=== PATIENT | male | born 1980 | race Two or more races ===

== ENCOUNTER 2016-09-21 20:16 | Emergency (ER) | payer MEDICAID ==
[2016-10-16 09:40] VITALS: BMI 25.1
== END 2016-09-22 00:30 | disposition home or self-care (01) ==
LOC: D.ER 20:16 → EDBD 20:16 → D.ER 09-22 00:30
DX: B34.9 Viral infection, unspecified (principal); R19.7 Diarrhea, unspecified; J45.909 Unspecified asthma, uncomplicated

== ENCOUNTER 2016-10-15 10:35 | Inpatient (IN) | payer MEDICAID ==
[~2016-10-15] VITALS: Ht 180.3 cm; Wt 65.1 kg
--- NOTE | ~2016-10-15 | EC ---
PATIENT:ABDIEL SOSA DATE OF SERVICE: 10/15/16 SEX: M MEDICAL RECORD: [id number] DATE OF : [birth year] LOCATION:D. D.211 AGE OF PATIENT: 36 ADMISSION DATE: 10/15/16 REFERRING PHYSICIAN: INTERPRETING PHYSICIAN: YONATHAN FELIX M.D. ECHOCARDIOGRAM REPORT ECHO CHARGES 5 ECHO LIMITED CLINICAL DIAGNOSIS: ASSESS FOR ANNULAR ABSCESS ON AORTIC VAVLE DUE TO AORTIC ENDOCARDITIS ECHOCARDIOGRAPHIC MEASUREMENTS (adult normal given) AC root (d.<3.7cm) 4.6 LV Septum d (<1.2 cm> 1.6 Valve Excursion 2.8 LV Septum (systole) 2.3 Left Atria (s.<4.0cm> 4.8 LVPW d(<1.2cm) 1.9 RV (d.<2.3cm) 5.8 LVPW (sytole) 2.2 LV diastole(<5.6CM) 6.4 MV E-F(>70mm/sec) LV systole 4.2 LVOT Diameter 1.9 MV exc.(>10mm) 1.5 Est.ejection fraction (50-75%) Pericardial Effusion N DOPPLER: LVIT A 104 E 139 LA RVSP 74 LVOT 159 AOP1/2T Asc. Ao 337 RVOT 99 RA PA 119 AV Gradient Peak 45.39 AV Mean 28.45 AV Area 1.4 MV Gradient Peak 12.65 MV Mean 4.90 MV Area COMMENTS: Repairer Welding Systems And Equipment: Meghana DIOR Lute Packer Or Applier:2 Dr. Felix TAPE# PACS DATE OF SERVICE: 10/30/2016 REFERRING PHYSICIAN: Kingsley An MD. INDICATION: Endocarditis. DESCRIPTION: Left ventricle demonstrates left ventricular hypertrophy. No regional wall motion abnormalities are seen. Estimated ejection fraction is 55%. Mitral valve is structurally normal. There is no regurgitation or ECHOCARDIOGRAM REPORT [id number] ABDIEL SOSA prolapse seen. Left atrium is normal in size. The aortic valve leaflets are thickened. There appears to be a vegetation, possibly on the noncoronary cusp. Does appear smaller in density and diameter than the previous study. There was jxtg-vx-avwxrhbo insufficiency noted. I do not see any evidence of a ring abscess. Right ventricle is moderately dilated. Tricuspid valve is structurally normal. There is no regurgitation noted. Right atrium is normal in size. No pericardial effusion is seen. IMPRESSION: 1. Left ventricular hypertrophy with preserved ejection fraction of 55%. 2. Krnx-ul-kabpjfqc aortic insufficiency. 3. There is still vegetation possibly on the noncoronary cusp. This appears smaller in diameter than previous study. There is no evidence of ring abscess. TRANSINT:[id number] Voice Confirmation ID: [id number] DOCUMENT ID: [id number] YONATHAN FELIX M.D. CC: [id number] DICTATION DATE: 10/30/16 1433 RELATIONS MANAGER: 10/30/16 1555 ADM IN [facility] [address] [id number]
--- NOTE | ~2016-10-15 | HEMODYNAMI ---
PATIENT:ABDIEL SOSA MEDICAL RECORD: [id number] : [birth year] LOCATION: D.2227 ADMISSION DATE: 10/15/16 Generatedon:10/20/201614:20 Patient name: ABDIEL SOSA Patient #: [id number] : 1980 Date of study: 10/20/2016 Page: Of Hemodynamic Procedure Report Patient Data Patient Demographics Procedure consent was obtained First Name: ABDIEL Gender: Male Last Name: SHEILA : 1980 Middle Initial: SHILOH Age: 36 year(s) Patient #: [id number] Race: Other SSN: [id number] Additional ID: [id number] Contact details [address]: [address] [place] [address] State: [place] City: [place] Zip code: [address] Admission Admission Data Admission Date: 10/15/2016 Admission Time: 14:01 Arrival Date: 10/20/2016 Arrival Time: 0:00 Admit Source: Other Room #: D.2227 Height (in.): 71 BSA: 1.88 (m2) Height (cm.): 180.34 BMI: 21.4 (kg/m2) Weight (lbs.): 153.44 Weight (kg.): 69.6 Lab Results Lab Result Date: 10/20/2016 Lab Result Time: 0:00 Biochemistry Name Units Result Min Max BUN mg/dl 9 --(*---)-- 7 18 Creatinine mg/dl 0.7 --(*---)-- 0.6 1.3 CBC Name Units Result Min Max Hemoglobin g/dl 9.4 *-(----)-- 13.5 17.5 Procedure Procedure Types Cath Procedure Diagnostic Procedure LHC Coronaries only MOUSTAPHA Miscellaneous Procedures Moderate Sedation up to 15 minutes Procedure Description Procedure Date Procedure Date: 10/20/2016 Procedure Start Time: 14:08 Procedure End Time: 14:15 Procedure Staff Name Function Ld Hazel MD Performing Physician Aida Montano RT Scrub Sujit Cuellar RN Nurse Asuncion Hancock RT Monitor Procedure Data Cath Procedure Fluoroscopy Diagnostic fluoroscopy Total fluoroscopy Time: 0.9 time: 0.9 min min Diagnostic fluoroscopy Total fluoroscopy dose: 313 dose: 313 mGy mGy Contrast Material Contrast Material Type Amount (ml) Isovue 300 43 Entry Location Entry Primary Successful Side Size Upsize Upsize Entry Closure Succes sful Closure Location (Fr) 1 (Fr) 2 (Fr) Remarks Device Remarks Femoral Right 5 Fr Exoseal artery Estimated blood loss: 10 ml Diagnostic catheters Device Type Used For End Catheter Placement Medtronic Dexterity 5Fr Procedure JL 4.0 catheter (NO CHARGE) Medtronic Dexterity 5Fr Procedure 3DRC catheter (NO CHARGE) Procedure Complications No complications Procedure Medications Medication Administration Route Dosage Oxygen NC 2 l/min Refer to Anesthesia Notes for Sedation Medications Hurricaine Elizabeth P.O. 1 Sprays Versed I.V. 1 mg Fentanyl I.V. 50 mcg Versed I.V. 1 mg Fentanyl I.V. 50 mcg Versed I.V. 1 mg Fentanyl I.V. 50 mcg Hemodynamics Rest BSA: 1.88 (m2) HGB: 9.4 (g/dl) O2 Consumption: Estimated: 248.22 (ml/min) O2 Con sumption indexed: Estimated:132.03 (ml/min/m) Heart Rate: 93 (bpm) Snapshots Pre Cath Intra NCS Post Cath Vital Signs Time Heart Resp SPO2 NIBP Rhythm Pain Sedation Rate (ipm) (%) (mmHg) Status Level (bpm) 13:14:56 96 19 96 95/50(68) NSR 0 (11) 10(A) , No pain 13:19:06 95 21 97 92/46(69) NSR 0 (11) 10(A) , No pain 13:23:14 89 30 97 86/50(69) NSR 0 (11) 10(A) , No pain 13:27:16 97 26 100 106/62(80) NSR 0 (11) 10(A) , No pain 13:31:24 96 16 98 99/55(73) NSR 0 (11) 10(A) , No pain 13:35:34 92 29 98 108/59(78) NSR 0 (11) 8(A) , No pain 13:39:48 88 89 97 96/50(71) NSR 0 (11) 8(A) , No pain 13:44:00 87 89 96 83/44(64) NSR 0 (11) 9(A) , No pain 13:48:03 84 21 98 78/57(67) NSR 0 (11) 9(A) , No pain 13:52:05 85 33 96 96/54(77) NSR 0 (11) 9(A) , No pain 13:56:15 85 25 96 92/49(65) NSR 0 (11) 10(A) , No pain 14:00:23 84 22 96 90/49(68) NSR 0 (11) 10(A) , No pain 14:04:30 84 16 96 90/50(63) NSR 0 (11) 9(A) , No pain 14:08:36 84 22 97 90/52(65) NSR 0 (11) 9(A) , No pain 14:12:42 86 20 97 94/52(70) NSR 0 (11) 10(A) , No pain Medications Time Medication Route Dose Verified Delivered Reason Notes Effective ness by by 13:32:28 Oxygen NC 2 Ld Buffie used for l/min St. Oskar Cuellar RN procedure 13:32:34 Refer to Ld Beckett Anesthesia St. Oskar Cuellar RN Notes for MD Sedation Medications 13:32:44 Hurricaine P.O. 1 Ld Buffie Per Elizabeth Sprays St. Oskar Cuellar RN physician 14:00:25 Versed I.V. 1 mg Ld Buffie for [facility]. Oskar Cuellar RN sedation 14:00:33 Fentanyl I.V. 50 mcg Ld Buffie for St. Oskar Cuellar RN sedation 14:04:45 Versed I.V. 1 mg Ld Buffie for [facility]. Oskar Cuellar RN sedation 14:04:49 Fentanyl I.V. 50 mcg Ld Buffie for St. Oskar Cuellar RN sedation 14:10:52 Versed I.V. 1 mg Ld Buffie for [facility]. Oskar Cuellar RN sedation 14:10:56 Fentanyl I.V. 50 mcg Ld Buffie for St. Oskar Cuellar RN sedation Procedure Log Time Note 12:45:50 Aida Montano RT(R) sent for patient. Start room use. 12:54:08 Patient Height : 180.34 cm 12:54:25 Patient Weight : 69.6 kg 12:54:33 Arrival Date: 10/20/2016 12:00:00 AM 12:54:42 Admit Source: Other 12:55:48 Lab Result : BUN 9 mg/dl 12:55:48 Lab Result : Hemoglobin 9.4 g/dl 12:55:48 Lab Result : Creatinine 0.7 mg/dl 12:55:59 Diagnostic Cath Status : Elective 13:08:30 Informed consent obtained and on chart 13:09:00 Time tracking: Regular hours 13:09:04 Plan of Care:Hemodynamics will remain stable., Cardiac rhythm will remain stable., Comfort level will be maintained., Respiratory function will remain adequate., Patient/ family verbilizes understanding of procedure., Procedure tolerated without complication., Recovers from procedure without complications.. 13:09:39 Patient received from Med II to CCL 2 Alert and oriented. Tansferred to table in Supine position. 13:09:40 Warm blankets applied, and vicente hugger turned on for patient comfort. 13:09:40 Correct patient and procedure confirmed by team. 13:09:41 ECG and BP/O2 sat monitors applied to patient. 13:09:43 Vital chart was started 13:09:45 Baseline sample Acquired. 13:09:55 Rhythm: sinus rhythm 13:09:57 Full Disclosure recording started 13:10:14 H&P Date Dictated: 10/20/2016 Within 30 days and on chart., H&P Addendum completed by physician on day of procedure. (MUST COMPLETE FOR ALL OUTPATIENTS). 13:10:19 Pre-procedure instructions explained to patient. 13:10:20 Pre-op teaching completed and patient verbalized understanding. 13:10:24 Family in waiting room. 13:10:26 Patient NPO since Midnight. 13:10:56 Is the patient allergic to Iodine/contrast media? No. 13:10:58 Was the patient premedicated? No 13:13:10 Airway obstruction? Yes Asthma 13:14:11 Snore? No 13:14:13 Sleep apnea? No 13:16:10 Patient pain scale 0/10 ?. 13:16:41 IV patent on arrival in right antecubital with 0.9% NaCl at O. 13:17:05 Lab results completed and on chart. 13:17:13 Physician paged 13:17:26 Procedure type changed to Cath procedure, Diagnostic procedure, LHC, Coronaries only, MOUSTAPHA, Miscellaneous Procedures, Moderate Sedation up to 15 minutes 13:25:16 Jocelyn Glue Spreading Machine Operator present for MOUSTAPHA. 13:31:01 Lilibeth present and monitoring patient for TIVA. 13:31:10 Procedure started. 13:31:46 Physician arrived 13:32:28 Oxygen 2 l/min NC was administered by Sujit Cuellar RN; used for procedure; 13:32:34 Refer to Anesthesia Notes for Sedation Medications was administered by Sujit Cuellar RN; ; 13:32:44 Hurricaine Elizabeth 1 Sprays P.O. was administered by Sujit Cuellar RN; Per physician; ::46 --------ALL STOP TIME OUT------ 13:32:47 Final Timeout: patient, procedure, and site verified with staff and physician. All members of the team are in agreement. 13:32:56 Sedation plan: TIVA Propofol 13:34:36 MOUSTAPHA started. 13:42:13 MOUSTAPHA completed. 14:00:25 Versed 1 mg I.V. was administered by Sujit Cuellar RN; for sedation; 14:00:33 Fentanyl 50 mcg I.V. was administered by Sujit Cuellar RN; for sedation; 14:02:06 Right groin area was prepped with chlora-prep and draped in sterile fashion 14:02:08 Alarms reviewed by R. N. 14:02:09 Alarms reviewed by R. N. 14:04:45 Versed 1 mg I.V. was administered by Sujit Cuellar RN; for sedation; 14:04:49 Fentanyl 50 mcg I.V. was administered by Sujit Cuellar RN; for sedation; 14:07:16 Use device set Femoral Dx 14:07:59 Acist Syringe opened to sterile field. 14:08:01 Bag Decanter opened to sterile field. 14:08:04 Medline Cath Pack opened to sterile field. 14:08:05 Terumo 5Fr Sikeston Sheath opened to sterile field. 14:08:07 St Allen 260cm J .035 wire opened to sterile field. 14:08:10 Acist Hand Control opened to sterile field. 14:08:10 Acist Manifold opened to sterile field. 14:08:13 Tegaderm 4 x 4 opened to sterile field. 14:08:27 Local anesthetic to right femoral artery with Lidocaine 2% by Ld Hazel MD.INITIAL ACCESS ONLY 14:08:35 A 5 Fr sheath was inserted into the Right Femoral artery 14:08:53 A Airtimetronic Dexterity 5Fr JL 4.0 catheter (NO CHARGE) was advanced over the wire and used for Procedure. 14:10:02 LCA angiography performed. 14:10:52 Versed 1 mg I.V. was administered by Sujit Cuellar RN; for sedation; 14:10:55 Catheter removed. 14:10:56 Fentanyl 50 mcg I.V. was administered by Suijt Cuellar RN; for sedation; 14:11:05 A Medtronic Dexterity 5Fr 3DRC catheter (NO CHARGE) was advanced over the wire and used for Procedure. 14:11:20 RCA angiography performed. 14:12:20 Catheter removed. 14:12:38 Cordis 5Fr Exoseal opened to sterile field. 14:12:59 Sheath removed intact; hemostasis achieved with Exoseal to the Right Femoral artery. 14:13:02 Procedure ended.(Physican Out) 14:13:32 Fluoroscopy time 00.90 minutes. 14:13:51 Fluoroscopy dose: 313 mGy 14:13:51 Flurop Dose total: 313 14:14:00 Contrast amount:Isovue 300 43ml. 14:14:02 Sharps counted by scrub and verified by R.N. 14:14:08 Insertion/operative site no bleeding no hematoma. 14:14:11 Post-op/insertion site Right Femoral artery dressed using a 4 x 4 and Tegaderm. 14:14:13 Post Procedure Pulses reassessed and unchanged 14:14:20 Post-procedure physical assessment completed. ASA score P 2 - A patient with mild systemic disease as per Ld Hazel MD. 14:14:27 Post procedure rhythm: sinus rhythm 14:14:29 Estimated blood loss: 10 ml 14:14:31 Post procedure instruction explained to patient.Patient verbalizes understanding. 14:14:48 Procedure and supply charges have been captured, reviewed, submitted and are correct. 14:15:12 Procedure Complication : No complications 14:15:15 Vital chart was stopped 14:15:24 See physician's report for complete and final results. 14:15:31 Report given to Airtime II. 14:15:38 Patient transfered to Med II with Bed. 14:15:40 Procedure ended. 14:15:40 Full Disclosure recording stopped 14:15:44 End room use (Document Last) Device Usage Item Name Manufacture Quantity Catalog Hospital Part Current Minimal Lot # / Number Charge Number Stock Stock Serial# Code Acist ist 1 [id number] [id number] [id number] 20 Syringe Medical Systems Inc Bag Microtek 1 2002S 359778 92794 [id number] 5 Decanter Medical Inc. Medline Cardinal 1 [id number] 42332 [id number] 5 Cath Pack Health Terumo Terumo 1 [id number] [id number] 208835 067280 [address] St Allen 1 [id number] 799556 084405 303466 30 260cm J .035 wire Acist Acist 1 68520 960434 377478 888716 5 Hand Medical Control Systems Inc Acist Acist 1 95168 448048 838857 786149 5 Manifold Medical Systems Inc [facility] 1 [id number] 021718 457515 565516 5 4 x 4 Medtronic Medtronic 1 [id number] 936702 361253 5 Dexterity 5Fr JL 4.0 catheter (NO CHARGE) Medtronic Medtronic 1 [id number] 792892 520874 5 Dexterity 5Fr 3DRC catheter (NO CHARGE) Cordis Cardinal 1 EX500 158414 150135 275016 10 5Fr Health Exoseal Signature Audit [place] Stage Time Signature Unsigned Intra-Procedure 10/20/2016 Asuncion Hancock 2:20:18 PM RT(R) Signatures Monitor : Asuncion Hancock Signature : RT Date : Time : [address] [place] [address]
[2016-10-15 11:51] LABS: APPEARANCE HAZY (CLEAR); BILIRUBIN NEGATIVE (NEGATIVE); COLOR YELLOW (YELLOW); GLUCOSE 50 mg/dL (NEGATIVE); KETONE NEGATIVE (NEGATIVE); LEUKOCYTE ESTERASE NEGATIVE (NEGATIVE); NITRITE NEGATIVE (NEGATIVE); PROTEIN TRACE mg/dL (NEGATIVE); UROBILINOGEN NORMAL (NORMAL)
[2016-10-15 11:51] LABS: BASOPHILS 0.1 % (0-2); EOSINOPHILS 0.1 % (0-7); HEMATOCRIT 35.6 % (42.0-54.0); HEMOGLOBIN 12.5 g/dL (13.5-17.5); IMMATURE GRANULOCYTES 0.3 % (0-5); LYMPHOCYTES 5.6 % (15-50); MCH 34.1 pg (26.0-34.0); MCHC 35.1 g/dL (31.0-37.0); MEAN PLATELET VOLUME 10.7 fL (7.4-10.4); MONOCYTES 2.9 % (2-11); PLATELET COUNT 146 10x3/uL (130-400); RBC 3.67 10x6/uL (4.20-6.10); RDW 11.7 % (11.5-14.5); WBC 11.9 10x3/uL (4.8-10.8)
[2016-10-15 11:52] LABS: EPITHELIAL CELLS 0-5 /hpf (0-5); WHITE CELLS - URINE 0-5 /hpf (0-5)
[2016-10-15 11:53] LABS: BACTERIA FEW /hpf (NONE SEEN)
[2016-10-15 12:05] LABS: ALKALINE PHOSPHATASE 54 U/L (46-116); ALT (SGPT) 30 U/L (10-68); BILIRUBIN - TOTAL 0.77 mg/dL (0.2-1.3); CALC OSMOLALITY 257 mosm/kg (275-300); CALCIUM 8.8 mg/dL (8.5-10.1); CARBON DIOXIDE 23.1 mmol/L (21.0-32.0); CHLORIDE - SERUM 95 mmol/L (98-107); CREATININE - SERUM 0.9 mg/dL (0.6-1.3); GLUCOSE 134 mg/dL (74-106); POTASSIUM - SERUM 4.7 mmol/L (3.5-5.1); PROTEIN - SERUM 7.7 g/dL (6.4-8.2); SODIUM 127 mmol/L (136-145); UREA NITROGEN 14 mg/dL (7-18); eGFR NON AFRICAN AMERICAN > 90 mL/min (90-120)
[2016-10-15 12:21] LABS: MAGNESIUM - SERUM 1.4 mg/dL (1.8-2.4)
[2016-10-15 12:33] LABS: TROPONIN-I 2.389 ng/mL (0.000-0.060)
--- NOTE | 2016-10-15 16:13 | NUR ---
RECEIVED PT FROM ER VIA W/C AAOX4 RESP UNLABORED SKIN W/D C/O GENERALIZED ACHING ALL OVER
[2016-10-15] MEDS ORDERED: ADVAIR 500/501 DISK INH (16:28)
[2016-10-15] MEDS ORDERED: VENTOLIN HFA18 GM INH (16:30)
[2016-10-15 16:42] VITALS: BP 99/49
--- NOTE | 2016-10-15 17:14 | NUR ---
FSBS 113
[2016-10-15 17:45] VITALS: BP 99/49; BMI 25.2
--- NOTE | 2016-10-15 19:40 | NUR ---
RECEIVED REPORT, PT VISITING WITH FRIEND, DENIES ANY NEEDS, BED IS LOW, SRX2, CALL LIGHT IN REACH, WILL CONTINUE TO MONITOR
[2016-10-15 20:26] LABS: CKMB 4.2 U/L (0.0-3.6); CREATINE KINASE 272 UL (21-232)
[2016-10-15 20:31] LABS: TROPONIN-I 3.423 ng/mL (0.000-0.060)
--- NOTE | 2016-10-15 21:40 | NUR ---
CALL TO [facility] - PT TEMP REPORTEDLY 103 MT AND HR 113. B/P 78/47 - RECHECKED MANUALLY AND IS ABOUT THE SAME. TROP DRAWN @ 1920 HAS INCREASED TO 3.4. PT IS DIAPHORETIC AND C/O ALL OVER PAIN. [facility] RETURNS CALL - NOTIFIED OF CHANGES IN CONDITION. [facility] INQUIRED IF PT WAS SEEN BY DR NANCE OR IF CONSULT HAD BEEN CALLED TO DR NANCE. NO DOCUMENTATION SEEN. CALL TO DR SEXTON, [facility]. NOTIFIED OF CONSULT AND PT'S CHANGE IN CONDITION. ORDERS TO TRANSFER THE PT TO ICU NOW. PT'S NURSE, ALLEN, INSTRUCTED ON NEW ORDERS. NSG PERINATAL TECHNICIAN NOTIFIED OF NEED FOR AN ICU BED. [facility] CALLS THE FLOOR ONCE AGAIN AND TOLD THAT PT IS BEING TRANSFERRED TO THE ICU ROOM 2307 AND SHE ORDERS FOR CONSULT WITH DR MORATAYA AND TO ADD LEVAQUIN 750 MG IVPB DAILY TO PT'S MEDICATION REG. ORDERS PER CPOE.
--- NOTE | 2016-10-15 22:11 | NUR ---
call report to icu, pt being tranfered per dr. meeks
[2016-10-15 22:20] VITALS: BP 109/66
--- NOTE | 2016-10-15 22:20 | NUR ---
RECEIVED PATIENT FROM [facility] VIA WEELCHAIR. TRANSFERED TO ICU BED. WATER PLANT PUMP OPERATOR SUPERVISOR ATTACHED. ST WITH HR AT 118, RR TO 28,TEMP 103.2, O2SAT 84 ON RA, NC AT 2L STARTED. O2 SAT 98%. PT A/O X4, DENIES ANY PAIN OR DISCOMFORT TO CHEST AT THIS TIME. TYLENOL 500MG GIVEN BEFORE LEFT THE FLOOR PER ALLEN FULTON. 500CC BOLUS CONT TO RUN. HOB UP, SIDE RAILS UP X2. CALL LIGHT IN REACH. WILL CONT TO MONITOR.
[2016-10-15 23:00] VITALS: BP 91/48
--- NOTE | 2016-10-15 23:30 | NUR ---
FALLON DUFFY CALLED FOR UPDATE ON PT'S CONDITION. FALLON'S CONCERNS WAS REGARDING PATIENT BEEN SEPTIC, AND HAD ONE ABX. SHE ORDER TO CALL DR MORATAYA AND CONSULT DR BOATENG. [id number] DR MORATAYA CALLED, VOICEMAIL LEFT. NO CALL BACK RECEIVED.
[2016-10-16] VITALS (24 sets, daily range): BP systolic 82–114; BP diastolic 43–71; Ht 180.3 cm; Wt 65.1 kg
--- NOTE | 2016-10-16 | NUR ---
CALLED KIM FINN SUPPERV. CALLED AND NOTED OF CALLING DR WELCH ON CELL PHONE AND LEFT VOICEMAIL AND NOT CALLED BACK. DR MORATAYA SHE IS OUT OF TOWN ON CONFERENCE.
--- NOTE | 2016-10-16 | NUR ---
DR BOATENG CALLED AND NOTED OF PT'S STATUS. ORDERS RECEIVED.
--- NOTE | 2016-10-16 01:00 | NUR ---
PT RESTING IN BED WITHOUT DISTRESS. DENIES ANY DISCOMFORT AT THIS TIME. VSS. CALL LIGHT IN REACH. WILL CONT TO MONITOR.
[2016-10-16 01:56] LABS: CKMB 3.1 U/L (0.0-3.6); CREATINE KINASE 233 UL (21-232)
[2016-10-16 01:57] LABS: TROPONIN-I 3.947 ng/mL (0.000-0.060)
--- NOTE | 2016-10-16 03:00 | NUR ---
REASSESSMENT COMPLETED. SEE FLOW SHEETS FOR ALL FINDINGS. NO ACUTE SIGNS OF DISTRESS NOTED. VSS. NO NEEDS VOICES AT THIS TIME. CALL LIGHT IN REACH. WILL CONT TO MONITOR.
[2016-10-16 05:44] LABS: BASOPHILS 0.1 % (0-2); EOSINOPHILS 0.1 % (0-7); HEMATOCRIT 30.7 % (42.0-54.0); HEMOGLOBIN 10.5 g/dL (13.5-17.5); IMMATURE GRANULOCYTES 0.4 % (0-5); LYMPHOCYTES 9.7 % (15-50); MCH 33.8 pg (26.0-34.0); MCHC 34.2 g/dL (31.0-37.0); MCV 98.7 fL (80.0-100.0); MEAN PLATELET VOLUME 9.7 fL (7.4-10.4); MONOCYTES 8.5 % (2-11); NEUTROPHILS 81.2 % (40-80); RBC 3.11 10x6/uL (4.20-6.10)
[2016-10-16 05:48] LABS: PLATELET COUNT 114 10x3/uL (130-400); WBC 14.9 10x3/uL (4.8-10.8)
[2016-10-16 06:16] LABS: ALBUMIN 2.3 g/dL (3.4-5.0); ALKALINE PHOSPHATASE 43 U/L (46-116); ALT (SGPT) 23 U/L (10-68); BILIRUBIN - TOTAL 0.29 mg/dL (0.2-1.3); CALCIUM 7.4 mg/dL (8.5-10.1); CARBON DIOXIDE 23.6 mmol/L (21.0-32.0); CHLORIDE - SERUM 105 mmol/L (98-107); CKMB 3.4 U/L (0.0-3.6); CREATINE KINASE 184 UL (21-232); CREATININE - SERUM 0.8 mg/dL (0.6-1.3); GLUCOSE 137 mg/dL (74-106); MAGNESIUM - SERUM 1.7 mg/dL (1.8-2.4); PRO BNP 5665 pg/mL (0-125); PROTEIN - SERUM 5.9 g/dL (6.4-8.2); SODIUM 136 mmol/L (136-145); eGFR NON AFRICAN AMERICAN > 90 mL/min (90-120)
[2016-10-16 06:28] LABS: CALC OSMOLALITY 271 mosm/kg (275-300); POTASSIUM - SERUM 3.7 mmol/L (3.5-5.1); TROPONIN-I 3.921 ng/mL (0.000-0.060); UREA NITROGEN 8 mg/dL (7-18)
--- NOTE | 2016-10-16 07:00 | NUR ---
REPORT RECEIVED. ASSESSMENT COMPLETED. PATIENT IN SEMIFOWLERS POSITION WITH EYES CLOSED. OPENS EYES WHEN SPOKEN TO. DENIES NEEDS AT THIS TIME.
--- NOTE | 2016-10-16 09:09 | NUR ---
FRIEND HERE FOR VISITATION. QUESTIONS ANSWERED. PATIENT WANTING TO GO HOME TODAY. EXPLAINED TO PATIENT AND VISITOR ABOUT PATIENTS DIAGNOSIS.
--- NOTE | 2016-10-16 11:26 | NUR ---
DR SADIE HART. DISCUSSED WITH HIM THE REASON HE WAS MOVED TO THE UNIT. HE STATED IF NEED BE TO INCREASE HIS FLUIDS TO 150 CC/HR. WILL MONITOR.
--- NOTE | 2016-10-16 12:30 | NUR ---
NO VISITORS DURING THIS VISITATION.
--- NOTE | 2016-10-16 15:30 | NUR ---
URINE SPECIMINE COLLECTED AND SENT TO LAB.
--- NOTE | 2016-10-16 16:18 | CN ---
PATIENT NAME:ABDIEL SOSA MEDICAL RECORD: [id number] : 80 LOCATION:RADHA.2308 ADMIT DATE: 10/15/16 ACCOUNT: [id number] CONSULTING PHYSICIAN: GREG NANCE MD REFERRING PHYSICIAN: NANCY NOEL M.D. DATE OF CONSULTATION: 10/16/2016 HISTORY OF PRESENT ILLNESS: A 36-year-old gentleman who has about 2-week history of progressive malaise, fatigue, muscle aches, fever, chills, presented hypotensive, tachycardic. Temperature at home unknown, up to 103, previously was given outpatient antibiotics. He does have a history of a heart murmur and this ongoing. He takes, it sounds like endocarditis prophylaxis at dental appointment. There is no history of rheumatic fever. We are asked to see him concerning his cardiovascular status. PAST MEDICAL HISTORY: Include: 1. History of heart murmur as described above. 2. Reactive airway disease, on Ventolin. ALLERGIES: None known. SOCIAL HISTORY: He is a nonsmoker and does work. No illicit drug use. Able to take care of his ADLs. MEDICATIONS: Ventolin 2 puffs q.4 p.r.n. REVIEW OF SYSTEMS: The patient reports easy bruising but reports no swollen glands. The patient reports no fever, no night sweats, no significant weight gain, no significant weight loss. No significant exercise tolerance. The patient reports no dry eyes, no irritation, no vision change. Patient reports no difficulty hearing and no ear pain. Patient reports no frequent nose bleeds or nose and sinus problems. Patient reports on arm pain on exertion. No shortness of breath while lying down. No history of heart murmur. Patient reports no cough, no wheezing or coughing up blood. Patient reports no abdominal pain, no vomiting. Normal appetite. No diarrhea and not vomiting blood. No nausea and no constipation. Patient reports no incontinence. No difficulty urinating. No hematuria. No increased frequency. Patient reports no muscle aches. No weakness, no arthralgias, no back pain. No swelling of the extremities. Patient reports no abnormal mole, no jaundice, no rashes. Reports no loss of consciousness. No weakness and no numbness. No seizures, dizziness, or headaches. The patient reports no depression, no sleep disturbance, feeling safe in a relationship and no alcohol abuse. Patient reports on fatigue. Reports no runny nose or sinus pressure. No itching, no hives, and no frequent sneezing. PHYSICAL EXAMINATION: GENERAL: A young gentleman, appears stated age. VITAL SIGNS: Pulse currently 98, blood pressure 96/63. HEENT: Normocephalic, atraumatic. NECK: No bruits noted. HEART: Regular, II/ systolic ejection murmur heard throughout the entire precordium. LUNGS: Clear. ABDOMEN: Soft, nontender. EXTREMITIES: No clubbing, cyanosis, edema. Pulses are heard well and tacked CONSULT REPORT [id number] ABDIEL SOSA see no stigmata of endocarditis. NEUROLOGIC: Grossly intact. DIAGNOSTIC DATA: ECG shows LVH with repolarization abnormality. Cardiac enzymes are trending down consistent with stress leak. IMPRESSION: Acute coronary syndrome suspect secondary to stress leak secondary to current sepsis. Agree echocardiograph study to assess LV function as well as any evidence of endocarditis. If the patient does not deferverse fairly quickly, would have a low threshold for transesophageal echocardiography. TRANSINT:[id number] Voice Confirmation ID: [id number] DOCUMENT ID: [id number] GREG NANCE MD at 1618 CC: [id number] DICTATION DATE: 10/16/16818 PIPE WELDER: 10/16/16 1049 ADM IN [id number] [place] [address]
--- NOTE | 2016-10-16 19:20 | NUR ---
RECEIVED REPORT ON PATIENT, ASSESSMENT COMPLETE. SEE FLOWLSHEET FOR DETAILS. PATIENT SITTING UP IN BED AT 90% WATCHING TV. PATIENT IS ALERT AND ORIENTED AND RESPONDS APPROPRIATELY. PATIENT COMPLAING OF HAVING A SORE THROAT, CHLORASEPTIC SPRAY AT BEDSIDE AND GIVEN AT THIS TIME. WILL MONITOR. MURMUR NOTED WITH HEART SOUNDS. NORMAL SINUS ON MONITOR WITH RATE OF 82. LUNG SOUNDS CTA, DIMINSHED IN RLL AND LLL. BOWEL SOUNDS ACTIVE. ABDOMEN SOFT TO PALPATION. DENIES ANY PROBLEMS WITH BM OR URINATING. 400CC OF CLEAR YELLOW URINE IN BEDSIDE URINAL. NO EDEMA NOTED, CAP REFILL < 3SECONDS. PERIPHERAL PULSES +2. PATIENT HAS SLIGHT TEMP OF 99.5, WILL MONITOR. PIV INFUSING NS @ 150NL/HR, SITE C/D/I, NO S/S OF INFILTRATION OR INFECTION.
--- NOTE | 2016-10-16 22:05 | NUR ---
TEMP INCREASED TO 100.3, PRN TYLENOL GIVEN.
--- NOTE | 2016-10-16 23:00 | NUR ---
REASSESSMENT COMPLETE, NO ACUTE CHANGES FROM SHIFT ASSESSMENT. TEMP HAS DECREASED TO 100.0. VSS.
[2016-10-17] VITALS (15 sets, daily range): BP systolic 87–114; BP diastolic 49–70
--- NOTE | 2016-10-17 03:00 | NUR ---
REASSESSMENT COMPLETE PER FLOWSHEET, SEE FOR DETAILS. XRAY IN ROOM, PT TOLERATED WELL.
--- NOTE | 2016-10-17 05:00 | NUR ---
PATIENT RESTING WELL WITH EYES CLOSED, VSS, RR EVEN AND NONLABORED.
[2016-10-17 05:18] LABS: BASOPHILS 0.2 % (0-2); EOSINOPHILS 0.7 % (0-7); HEMATOCRIT 29.6 % (42.0-54.0); HEMOGLOBIN 10.3 g/dL (13.5-17.5); IMMATURE GRANULOCYTES 0.4 % (0-5); MCH 34.2 pg (26.0-34.0); MCHC 34.8 g/dL (31.0-37.0); MCV 98.3 fL (80.0-100.0); MEAN PLATELET VOLUME 9.7 fL (7.4-10.4); NEUTROPHILS 71.7 % (40-80); RBC 3.01 10x6/uL (4.20-6.10); RDW 12.2 % (11.5-14.5); WBC 11.2 10x3/uL (4.8-10.8)
[2016-10-17 05:22] LABS: PLATELET COUNT 149 10x3/uL (130-400)
[2016-10-17 05:48] LABS: ALBUMIN 2.1 g/dL (3.4-5.0); ALKALINE PHOSPHATASE 45 U/L (46-116); ALT (SGPT) 24 U/L (10-68); BILIRUBIN - TOTAL 0.27 mg/dL (0.2-1.3); CALC OSMOLALITY 267 mosm/kg (275-300); CALCIUM 7.3 mg/dL (8.5-10.1); CARBON DIOXIDE 25.5 mmol/L (21.0-32.0); CHLORIDE - SERUM 105 mmol/L (98-107); CREATINE KINASE 51 UL (21-232); CREATININE - SERUM 0.7 mg/dL (0.6-1.3); GLUCOSE 105 mg/dL (74-106); MAGNESIUM - SERUM 1.8 mg/dL (1.8-2.4); PHOSPHOROUS 2.4 mg/dL (2.5-4.9); POTASSIUM - SERUM 3.7 mmol/L (3.5-5.1); PROTEIN - SERUM 5.8 g/dL (6.4-8.2); SODIUM 135 mmol/L (136-145); UREA NITROGEN 6 mg/dL (7-18); eGFR NON AFRICAN AMERICAN > 90 mL/min (90-120)
[2016-10-17 05:58] LABS: TROPONIN-I 3.181 ng/mL (0.000-0.060)
[2016-10-17 06:24] LABS: ERYTHROCYTE SEDIMENTATION RATE 77 mm/hr (0-15)
--- NOTE | 2016-10-17 07:00 | NUR ---
REC'ED REPORT FROM OUTGOING RN - PT AA &O X4 - DENIES PAIN EXCEPT FOR SORE THROAT - CPOC
--- NOTE | 2016-10-17 09:00 | NUR ---
ASSESSMENT COMPLETE - PT DENIED ANY NEEDS EXCEPT SORE THROAT - MD IS AWARE. CPOC
[2016-10-17 10:11] LABS: HEPATITIS C ANTIBODY <0.1 (0.0-0.9)
--- NOTE | 2016-10-17 11:00 | NUR ---
DR. NOEL ON UNIT FOR ASSESSMENT - MD AGREED TO TRANSFER PT TO TELEMETRY BED WITH CONTIOUS POX (IF POSSIBLE). CPOC
--- NOTE | 2016-10-17 12:32 | NUR ---
PT RESTING - ATE 100% REG LUNCH TRAY - PT EAGER TO GO TO FLOOR - GAVE PRN PHOS AND MG+ PO MEDs PER ELECTROLYTE PROTOCOL - SEE MAR - CPOC
--- NOTE | 2016-10-17 16:00 | NUR ---
TEMPORAL TEMP 100.8 - GAVE TYENOL 500MG PRN PER ORDER - WILL CPOC
--- NOTE | 2016-10-17 17:00 | NUR ---
PT TEMP AT 101.8 - UPDATED SUPERVISOR VOLUNTEER SERVICES - CPOC
--- NOTE | 2016-10-17 18:00 | NUR ---
RECHECKED TEMP WNL - CPOC
--- NOTE | 2016-10-17 18:48 | NUR ---
PT RESTING - ASKED FOR CUP OF COFFEE - CPOC
--- NOTE | 2016-10-17 19:15 | NUR ---
SHIFT ASSESSMENT COMPLETE, PATIENT RESTING WITH EYES CLOSED, AWAKENS EASILY. A&O X4, DENIES PAIN AT THIS TIME. RR EVEN AND NON LABORED, 2L NC, SATS 98%. MURMUR HEARD WITH HEART SOUNDS. BOWEL SOUNDS ACTIVEX4. PERIPHERAL PULSES +2. VSS, PATIENT AFEBRILE WITH A TEMP OF 98.9, WILL MONITOR.
--- NOTE | 2016-10-17 21:10 | NUR ---
NO VISITORS AT THIS TIME. DENIES NEED AT THIS TIME.
--- NOTE | 2016-10-17 23:00 | NUR ---
REASSESSMENT COMPLETE PER FLOWSHEET, SEE FOR DETAILS. PATIENT RESTING WELL, HAS MILD FEVER, BLANKETS REMOVED. LUNG SOUNDS CTA. MURMUR NOTED WITH HEART SOUNDS. NORMAL SINUS NOTED. BOWEL SOUNDS ACTIVE. REPORTS NO PROBLEM VOIDING. CLEAR YELLOW URINE IN BEDSIDE URINAL. CAP REFILL < 3 SECONDS. PERIPHERAL PULSES +2. PIV IN RW AND RAC, BOTH PATENT, DRESSINGS C/D/I. NO S/S OF INFECTION OF INFILTRATION. PATIENT DENIES NEED AT THIS TIME, WILL MONITOR.
[2016-10-18] VITALS (11 sets, daily range): BP systolic 89–110; BP diastolic 48–62
--- NOTE | 2016-10-18 01:00 | NUR ---
RESTING WELL, RR EVEN AND NONLABORED. VSS. PATIENT ON ROOM AIR AT THIS TIME-O2 SAT 96%.
--- NOTE | 2016-10-18 03:00 | NUR ---
REASSESSMENT COMPLETE, NO CHANGES. VSS.
[2016-10-18 04:08] LABS: BASOPHILS 0.1 % (0-2); EOSINOPHILS 0.1 % (0-7); HEMATOCRIT 28.5 % (42.0-54.0); HEMOGLOBIN 9.7 g/dL (13.5-17.5); IMMATURE GRANULOCYTES 0.6 % (0-5); LYMPHOCYTES 13.7 % (15-50); MCH 33.7 pg (26.0-34.0); MONOCYTES 11.5 % (2-11); PLATELET COUNT 172 10x3/uL (130-400); RBC 2.88 10x6/uL (4.20-6.10); WBC 10.2 10x3/uL (4.8-10.8)
[2016-10-18 04:32] LABS: ALKALINE PHOSPHATASE 45 U/L (46-116); ALT (SGPT) 26 U/L (10-68); BILIRUBIN - TOTAL 0.41 mg/dL (0.2-1.3); CALCIUM 7.6 mg/dL (8.5-10.1); CARBON DIOXIDE 24.1 mmol/L (21.0-32.0); CHLORIDE - SERUM 102 mmol/L (98-107); PHOSPHOROUS 2.2 mg/dL (2.5-4.9); POTASSIUM - SERUM 3.6 mmol/L (3.5-5.1); SODIUM 134 mmol/L (136-145); UREA NITROGEN 7 mg/dL (7-18)
[2016-10-18 04:33] LABS: CALC OSMOLALITY 268 mosm/kg (275-300); CREATININE - SERUM 0.9 mg/dL (0.6-1.3); GLUCOSE 157 mg/dL (74-106); eGFR NON AFRICAN AMERICAN > 90 mL/min (90-120)
--- NOTE | 2016-10-18 05:00 | NUR ---
PATIENT RESTING WITH EYES CLOSED, RR EVEN AND NON LABORED.
--- NOTE | 2016-10-18 07:59 | NUR ---
UP IN BED AWAKE AT THIS TIME. DENIES ANY NEEDS. NO ACUTE DISTRESS NOTED. WILL CONTINUE PLAN OF CARE.
--- NOTE | 2016-10-18 08:58 | NUR ---
PT TO BE TRANSFERRED TO ROOM 2227, CALLED REPORT TO BOZENA. WILL TRANSFER PT SHORTLY.
--- NOTE | 2016-10-18 09:23 | NUR ---
PT TRANSFERRED AT THIS TIME VIA WHEELCHAIR ACCOMPANIED BY NURSE. NO ACUTE DISTRESS NOTED. NO FURTHER ACTIONS.
--- NOTE | 2016-10-18 09:30 | NUR ---
RECEIVED TO ROOM 2227 AT THIS TIME. AWAKE AND ALERT WITH RESPIRATIONS EVEN AND NON LABORED. OXYGEN SATURATION 96% ON ROOM AIR. HEART RATE 98 WITH MURMUR PRESENT. URINAL PROVIDED TO PT AND IV TO RIGHT AC PATENT. DENIES NEEDS AT THIS TIME. WILL CONTINUE WITH PLAN OF CARE.
--- NOTE | 2016-10-18 11:24 | NUR ---
PT COMPLAINING OF GENERALIZED BODY ACHES. TEMPERATURE 101 DEGREES TEMPORAL. TEMPERATURE RECORDED IN THE VITAL SIGN FLOWSHEET. PROVIDED PT WITH TYLENOL 500MG PER ORDER. WET CLOTH PLACED ON PT'S HEAD AND LARGE QUILT REMOVED FROM PT TO HELP DECREASE TEMPERATURE.
--- NOTE | 2016-10-18 14:15 | NUR ---
LAST DOSE OF NEUTRA PHOS ADMINISTERED IN ORANGE JUICE AT THIS TIME. DENIES FURTHER NEEDS. CALL LIGHT IN REACH, WILL CONTINUE WITH PLAN OF CARE.
--- NOTE | 2016-10-18 15:15 | NUR ---
PRN MOTRIN ADMINISTERED AT THIS TIME FOR PAIN 5/10 IN LEFT SHOULDER. DENIES FURTHER NEEDS. CALL LIGHT IN REACH. PROVIDED PT WITH ICE PACK TO LEFT SHOULDER.
--- NOTE | 2016-10-18 16:44 | NUR ---
PRN TORADOL ADMINISTERED FOR CONTINUED PAIN TO LEFT SHOULDER. ICE PACK IN PLACE. SPOKE WITH DR NOEL AND X-RAY OF THE LEFT SHOULDER ORDERED.
--- NOTE | 2016-10-18 17:45 | NUR ---
IV TO RIGHT AC TENDER TO TOUCH. IV FLUIDS STOPPED. WILL OBTAIN A NEW IV SITE.
--- NOTE | 2016-10-18 20:00 | NUR ---
ASSESSMENT PER FLOWSHEET. ALERT/ORIENTED X3. IV PATENT RT UPPERARM OF NS AT 150CC'S/HR. TELM. SHOWS SR. SCD'S IN ROOM BUT OFF. CONTINUOUS PULSE OX SHOWS O2 SAT OF 97-98% ON ROOM AIR HR=97-101. HOB UP 30 DEGREES. SR UP X2 CALL LIGHT WITHIN REACH.
--- NOTE | 2016-10-18 21:00 | NUR ---
MEDS GIVEN PER MAR.
[2016-10-19] VITALS: BP 92/45
--- NOTE | 2016-10-19 | NUR ---
UP TO BR VOIDS IN URINAL. RESTING QUIELTY DENIES NEEDS.
--- NOTE | 2016-10-19 01:58 | NUR ---
MEDS GIVEN NV AUG. IV RATE DECREASED TO 75CC'S/HR ORDEED PER DR. BOATENG.
[2016-10-19 04:00] VITALS: BP 96/54
[2016-10-19 05:42] LABS: BASOPHILS 0.1 % (0-2); EOSINOPHILS 0.3 % (0-7); HEMATOCRIT 28.1 % (42.0-54.0); HEMOGLOBIN 9.6 g/dL (13.5-17.5); IMMATURE GRANULOCYTES 0.5 % (0-5); LYMPHOCYTES 15.5 % (15-50); MCH 33.7 pg (26.0-34.0); MCHC 34.2 g/dL (31.0-37.0); MCV 98.6 fL (80.0-100.0); MEAN PLATELET VOLUME 9.4 fL (7.4-10.4); MONOCYTES 14.1 % (2-11); NEUTROPHILS 69.5 % (40-80); RBC 2.85 10x6/uL (4.20-6.10); RDW 11.8 % (11.5-14.5); WBC 9.9 10x3/uL (4.8-10.8)
[2016-10-19 05:52] LABS: PLATELET COUNT 212 10x3/uL (130-400)
[2016-10-19 06:04] LABS: ALBUMIN 1.9 g/dL (3.4-5.0); ALKALINE PHOSPHATASE 48 U/L (46-116); ALT (SGPT) 28 U/L (10-68); BILIRUBIN - TOTAL 0.34 mg/dL (0.2-1.3); CALC OSMOLALITY 269 mosm/kg (275-300); CALCIUM 7.7 mg/dL (8.5-10.1); CARBON DIOXIDE 23.6 mmol/L (21.0-32.0); CHLORIDE - SERUM 103 mmol/L (98-107); CREATININE - SERUM 0.8 mg/dL (0.6-1.3); GLUCOSE 113 mg/dL (74-106); PROTEIN - SERUM 6.1 g/dL (6.4-8.2); SODIUM 135 mmol/L (136-145); eGFR NON AFRICAN AMERICAN > 90 mL/min (90-120)
[2016-10-19 06:09] LABS: UREA NITROGEN 9 mg/dL (7-18)
--- NOTE | 2016-10-19 07:40 | NUR ---
AWAKE AND ALERT AT THIS TIME. RESPIRATIONS EVEN AND NON LABORED. OXYGEN SATURATION 97% ON ROOM AIR. MEDICATIONS ADMINISTERED AND ASSESSMENT PERFORMED PER FLOWSHEET. DENIES PAIN OR NEEDS AT THIS TIME. CALL LIGHT IN REACH, WILL CONTINUE WITH PLAN OF CARE.
[2016-10-19 08:22] VITALS: BP 94/51
[2016-10-19 10:12] LABS: ANA REFLEX - DIRECT Negative (Negative)
--- NOTE | 2016-10-19 10:25 | EC ---
PATIENT:ABDIEL SOSA DATE OF SERVICE: 10/15/16 SEX: M MEDICAL RECORD: [id number] DATE OF : [birth year] LOCATION:D.MS [address]222 AGE OF PATIENT: 36 ADMISSION DATE: 10/15/16 REFERRING PHYSICIAN: INTERPRETING PHYSICIAN: ESTELLE SEXTON MD ECHOCARDIOGRAM REPORT ECHO CHARGES 4 ECHO COMPLETE CLINICAL DIAGNOSIS: ELEVATED TROPONIN ECHOCARDIOGRAPHIC MEASUREMENTS (adult normal given) AC root (d.<3.7cm) 4.4 LV Septum d (<1.2 cm> 1.2 Valve Excursion 2.0 LV Septum (systole) 1.8 Left Atria (s.<4.0cm> 4.5 LVPW d(<1.2cm) 1.6 RV (d.<2.3cm) 3.7 LVPW (sytole) 1.8 LV diastole(<5.6CM) 6.3 MV E-F(>70mm/sec) LV systole 3.4 LVOT Diameter 1.9 MV exc.(>10mm) 1.5 Est.ejection fraction (50-75%) Pericardial Effusion N DOPPLER: LVIT A 104 E 139 LA RVSP 74 LVOT 159 AOP1/2T Asc. Ao 337 RVOT 99 RA PA 119 AV Gradient Peak 45.39 AV Mean 28.45 AV Area 1.4 MV Gradient Peak 12.65 MV Mean 4.90 MV Area COMMENTS: Glass Block Bender: Meghana DIOR Mortgage Lender:Alaina Hazel TAPE# PACS DATE OF SERVICE: 10/16/2016 Echocardiogram FINDINGS: 1. Left ventricular chamber size is within normal limits. Left ventricular systolic function is normal. Overall ejection fraction estimated at 60%. 2. Left atrium is enlarged at 4.5 cm. Right atrium and right ventricle chamber sizes are as well mildly dilated. 3. Valvular structures: Aortic valve demonstrates heavy calcification, ECHOCARDIOGRAM REPORT [id number] ABDIEL SOSA moderate aortic stenosis. Valve area calculates to 1.4 cm-squared. There is a gradient of 45 mm across the valve. The remaining valvular structures have normal structure and motion. 4. No evidence of vegetative endocarditis. 5. Doppler interrogation elsewise reveals mild aortic insufficiency, mild mitral regurgitation, moderate tricuspid regurgitation, no other valvular insufficiency or stenosis; however, pulmonary systolic pressure is significantly elevated estimated at 74 mmHg. 6. No evidence of pericardial effusion or left ventricular thrombus. 7. No evidence of vegetative endocarditis. TRANSINT:[id number] Voice Confirmation ID: [id number] DOCUMENT ID: [id number] ESTELLE SEXTON MD at 1025 CC: [id number] DICTATION DATE: 10/16/16 1536 CHANNEL DIRECTOR: 10/16/16 1829 ADM IN [place] [id number] [place] [address]
--- NOTE | 2016-10-19 11:00 | NUR ---
SCHEDULED MEDICATIONS ADMINISTERED AT THIS TIME WITHOUT DIFFICULTY. PT DENIES PAIN AT THIS TIME. IV TO RIGHT UPPER ARM REMAINS PATENT. CALL LIGHT IN REACH, WILL CONTINUE WITH PLAN OF CARE.
[2016-10-19 11:50] VITALS: BP 94/54
--- NOTE | 2016-10-19 13:35 | NUR ---
SCHEDULED MEDICAITONS ADMINISTERED AT THIS TIME. DENIES NEEDS AT PRESENT TIME. CALL LIGHT IN REACH. WILL CONTINUE WITH PLAN OF CARE.
[2016-10-19 15:30] LABS: BASOPHILS 0.1 % (0-2); EOSINOPHILS 0.3 % (0-7); HEMATOCRIT 28.7 % (42.0-54.0); HEMOGLOBIN 9.8 g/dL (13.5-17.5); IMMATURE GRANULOCYTES 0.5 % (0-5); LYMPHOCYTES 15.6 % (15-50); MCH 33.9 pg (26.0-34.0); MCHC 34.1 g/dL (31.0-37.0); MCV 99.3 fL (80.0-100.0); MONOCYTES 13.6 % (2-11); NEUTROPHILS 69.9 % (40-80); PLATELET COUNT 246 10x3/uL (130-400); RBC 2.89 10x6/uL (4.20-6.10); RDW 11.9 % (11.5-14.5); WBC 9.4 10x3/uL (4.8-10.8)
[2016-10-19 15:46] VITALS: BP 111/66
[2016-10-19 15:53] LABS: CALC OSMOLALITY 270 mosm/kg (275-300); CARBON DIOXIDE 23.6 mmol/L (21.0-32.0); CHLORIDE - SERUM 101 mmol/L (98-107); CREATININE - SERUM 0.7 mg/dL (0.6-1.3); GLUCOSE 127 mg/dL (74-106); POTASSIUM - SERUM 3.8 mmol/L (3.5-5.1); SODIUM 135 mmol/L (136-145); UREA NITROGEN 9 mg/dL (7-18); eGFR NON AFRICAN AMERICAN > 90 mL/min (90-120)
--- NOTE | 2016-10-19 16:15 | NUR ---
IV SITE SALINE LOCKED AT THIS TIME SO THAT PT MAY SHOWER.
--- NOTE | 2016-10-19 16:32 | NUR ---
Patient Name: ABDIEL SOSA Admission Status: ER Accout number: [id number] Admission Date: 10-15-2016 : 1980 Admission Diagnosis:SEPSIS, UNSPECIFIED ORGANISM Attending: CARMEN Current LOS: 4 Anticipated DC Date: 10-21-2016 Planned Disposition: Home Primary Insurance: [employer]ICE PRVT OPTIONS [place] Discharge Planning Comments: CM SPOKE WITH PATIENT REGARDING D/C NEEDS AND PLANS. PATIENT STATED HE LIVES WITH HIS ROOMMATE NAJMA COOPER AND HE WILL DRIVE HIM HOME AT DISCHARGE. PATIENT STATED THERE ARE 2 STEPS W/RAILS TO ENTER HOME AND NO STAIRS INSIDE. PATIENTS PCP IS DR. DAS IN [place] AND USES [facility] [address] FOR HIS PHARMACY. PATIENT IS INDEPENDENT WITH HIS CARE AND HAS NO DME AT HOME. PATIENT DOES NOT WANT HOME HEALTH AT DISCHARGE. CM WILL CONTINUE TO FOLLOW PATIENT WITH D/C NEEDS AND PLANS. PCP DR. DAS IN [place] [facility]: [facility] [address]- [phone] NAJMA COOPER (ROOMMATE) [phone] Reamer Hand: Anali Min Is the patient Alert and Oriented? Yes 0 * How many steps to enter\exit or inside your home? 2 W/RAILS 0 * PCP DR. DAS IN [place] 0 * Pharmacy [facility] [address] 0 * Preadmission Environment Home with Family 0 * ADLs Independent 0 * Equipment None 0 * Other Equipment NONE 0 * List name and contact numbers for known caregivers / representatives who currently or will assist patient after discharge: NAJMA COOPER (ROOMMATE) [phone] 0 * Community resources currently utilized None 0 * Additional services required to return to the preadmission environment? Yes 0 * Can the patient safely return to the preadmission environment? Yes 0 * Has this patient been hospitalized within the prior 30 days at any hospital? No 0 Grand Total: 0
--- NOTE | 2016-10-19 19:55 | NUR ---
BROUGHT PATIENT WATER PER HIS REQUEST. PATIENT DENIES OTHER NEEDS AT THIS TIME. BED IN LOWEST POSITION AND CALL LIGHT WITHIN REACH. ENCOURAGED THE PATIENT TO CALL IF HE HAS FURTHER NEEDS.
[2016-10-19 20:00] VITALS: BP 91/47
--- NOTE | 2016-10-20 01:18 | NUR ---
ADMINISTERED TYLENOL PER ORDERS FOR TEMP OF 100.4
[2016-10-20 04:00] VITALS: BP 92/54
[2016-10-20 06:18] LABS: BASOPHILS 0.1 % (0-2); EOSINOPHILS 1.2 % (0-7); HEMATOCRIT 27.5 % (42.0-54.0); HEMOGLOBIN 9.4 g/dL (13.5-17.5); IMMATURE GRANULOCYTES 0.5 % (0-5); LYMPHOCYTES 9.9 % (15-50); MCH 33.8 pg (26.0-34.0); MCHC 34.2 g/dL (31.0-37.0); MCV 98.9 fL (80.0-100.0); MONOCYTES 11.5 % (2-11); NEUTROPHILS 76.8 % (40-80); PLATELET COUNT 271 10x3/uL (130-400); RBC 2.78 10x6/uL (4.20-6.10); RDW 11.8 % (11.5-14.5); WBC 8.5 10x3/uL (4.8-10.8)
[2016-10-20 06:41] LABS: ALBUMIN 2.1 g/dL (3.4-5.0); ALKALINE PHOSPHATASE 58 U/L (46-116); BILIRUBIN - TOTAL 0.31 mg/dL (0.2-1.3); CALC OSMOLALITY 267 mosm/kg (275-300); CALCIUM 8.5 mg/dL (8.5-10.1); CARBON DIOXIDE 25.2 mmol/L (21.0-32.0); CHLORIDE - SERUM 101 mmol/L (98-107); CREATININE - SERUM 0.7 mg/dL (0.6-1.3); GLUCOSE 116 mg/dL (74-106); PROTEIN - SERUM 6.6 g/dL (6.4-8.2); SODIUM 134 mmol/L (136-145); UREA NITROGEN 11 mg/dL (7-18); eGFR NON AFRICAN AMERICAN > 90 mL/min (90-120)
[2016-10-20 06:42] LABS: ALT (SGPT) 60 U/L (10-68)
[2016-10-20 08:17] VITALS: BP 93/43
--- NOTE | 2016-10-20 08:38 | NUR ---
SCHEDULED MEDICATIONS ADMINISTERED AT THIS TIME. PO MEDICATIONS HELD PER PT BEING NPO. LOVENOX HELD PER DR NANCE. PT REMAINS NPO. IV TO RIGHT UPPER ARM PATENT WITH NO S/S OF INFILTRATION PRESENT. CALL LIGHT IN REACH, WILL CONTINUE WITH PLAN OF CARE.
--- NOTE | 2016-10-20 10:30 | NUR ---
CONSENT FORMS SIGNED AND REVIEWED WITH PT. WITNESSED BY ALLEN KELLEY RN. DENIES QUESTIONS OR CONCERNS. IV REMAINS PATENT AND PT REMAINS NPO. CALL LIGHT IN REACH, DENIES NEEDS AT THIS TIME. WILL CONTINUE WITH PLAN OF CARE.
[2016-10-20 12:08] VITALS: BP 97/53
--- NOTE | 2016-10-20 12:10 | NUR ---
REMAINS NPO AT THIS TIME. DENIES NEEDS. OXYGEN SATURATION 96% ON ROOM AIR AND HEART RATE 101. CALL LIGHT IN REACH, WILL CONTINUE WITH PLAN OF CARE.
--- NOTE | 2016-10-20 12:20 | NUR ---
PRE OPERATIVE MEDICATIONS ADMINISTERED AT THIS TIME. NITRO PASTE NOT GIVEN PER JUJU IN ENGINEER SPECIALIST DUE TO BLOOD PRESSURE.
--- NOTE | 2016-10-20 12:30 | NUR ---
TELEMETRY REMOVED AND PLACED AT NURSES STATION UNTIL IT IS CERTAIN THAT PT WILL RETURN TO ROOM AFTER PROCEDURE.
--- NOTE | 2016-10-20 13:05 | NUR ---
TAKEN FOR PROCEDURES AT THIS TIME. WILL MONITOR PT WHEN HE RETURNS TO ROOM.
--- NOTE | 2016-10-20 14:23 | NUR ---
NUTRITION MONITORING & EVAL CHART REVIEWED. PT CURRENTLY NPO AND OOR FOR PROCEDURE. WILL PROVIDE DIET WHEN RESUMED, MONITOR PO INTAKE. RD FOLLOWING
--- NOTE | 2016-10-20 15:01 | NUR ---
RECEIVED PT TO ROOM 2115 VIA BED AAOX4 RESP UNLABORED SKIN W/D PT DENIES ANY NEEDS AT THIS TIME DRSG TO RT GROIN C/D/I WILL CONTINUE TO MONITOR
[2016-10-20 16:08] VITALS: BP 86/47
--- NOTE | 2016-10-20 19:00 | NUR ---
INITIAL ROUNDS MADE. PT SITTING UP IN BED WITH FAMILY IN ROOM. PT C/O PAIN 10/28. WILL REVIEW ORDERS AND TREAT ACCORDINGLY.
[2016-10-20 21:07] LABS: MYCOPLASMA PNEUMO IGG 153 U/mL (0-99)
[2016-10-20 21:48] VITALS: BP 98/54
--- NOTE | 2016-10-20 23:30 | NUR ---
PEDIATRIC SPEECH THERAPIST AT BEDSIDE FOR VS. NEEDS ADDRESSED AT THIS TIME. CALL LIGHT IN REACH. WILL CONT TO MONITOR.
[2016-10-21 01:50] VITALS: BP 91/55
[2016-10-21 05:52] VITALS: BP 97/53
[2016-10-21 08:23] VITALS: BP 97/59
[2016-10-21 11:42] VITALS: BP 113/62
--- NOTE | 2016-10-21 13:26 | NUR ---
TELEMETRY SR. IV PATENT. CALL LIGHT IN REACH. WILL CONT. PLAN OF CARE.
[2016-10-21 16:51] VITALS: BP 108/53
[2016-10-21 17:12] LABS: AEROBE ID Final report (())
[2016-10-21 19:00] VITALS: BP 105/55
--- NOTE | 2016-10-21 19:37 | NUR ---
RESUMED CARE OF PT, LYING IN BED RESPIRATIONS EVEN AND UNLABORED ON ROOM AIR. [address] ST ON TELEMETRY. RIGHT UPPER ARM INFUSING NS @ 75. PLAN OF CARE DISCUSSED. CALL LIGHT IN REACH. WILL CONTINUE TO MONITOR. SEE NURSE ASSESSMENT.
[2016-10-22] VITALS (7 sets, daily range): BP systolic 90–101; BP diastolic 41–53
--- NOTE | 2016-10-22 00:10 | NUR ---
DIRECTOR MULTIMEDIA AT BEDSIDE TO OBTAIN VITALS, CALL LIGHT IN REACH. WILL CONTINUE TO WITH PLAN OF CARE.
--- NOTE | 2016-10-22 06:41 | NUR ---
BATH AND LINENS CHANGED, REMAINS NPO. WILL CONTINUE TO MONITOR.
[2016-10-22 14:50] LABS: BASOPHILS 0.1 % (0-2); EOSINOPHILS 2.8 % (0-7); HEMATOCRIT 24.4 % (42.0-54.0); IMMATURE GRANULOCYTES 0.3 % (0-5); LYMPHOCYTES 14.2 % (15-50); MCH 33.8 pg (26.0-34.0); MCHC 32.8 g/dL (31.0-37.0); MEAN PLATELET VOLUME 9.2 fL (7.4-10.4); MONOCYTES 11.5 % (2-11); NEUTROPHILS 71.1 % (40-80); RBC 2.37 10x6/uL (4.20-6.10); RDW 12.4 % (11.5-14.5); WBC 7.2 10x3/uL (4.8-10.8)
[2016-10-22 14:51] LABS: PLATELET COUNT 375 10x3/uL (130-400)
[2016-10-22 14:53] LABS: CALC OSMOLALITY 273 mosm/kg (275-300); CALCIUM 8.5 mg/dL (8.5-10.1); CARBON DIOXIDE 28.2 mmol/L (21.0-32.0); CHLORIDE - SERUM 104 mmol/L (98-107); CREATININE - SERUM 0.7 mg/dL (0.6-1.3); GLUCOSE 90 mg/dL (74-106); POTASSIUM - SERUM 4.1 mmol/L (3.5-5.1); SODIUM 137 mmol/L (136-145); UREA NITROGEN 12 mg/dL (7-18); eGFR NON AFRICAN AMERICAN > 90 mL/min (90-120)
--- NOTE | 2016-10-22 19:54 | NUR ---
RESUMED CARE OF PT, LYING IN BED RESPIRATIONS EVEN AND UNLABORED ON ROOM AIR. RIGHT AC INFUSING NS @ 75. NO NEEDS VOICED AT THIS TIME. WILL CONTINUE TO MONITOR. SEE NURSE ASSESSMENT. CALL LIGHT IN REACH.
[2016-10-23 05:20] LABS: BASOPHILS 0.2 % (0-2); EOSINOPHILS 2.9 % (0-7); HEMATOCRIT 24.4 % (42.0-54.0); HEMOGLOBIN 8.3 g/dL (13.5-17.5); IMMATURE GRANULOCYTES 0.4 % (0-5); LYMPHOCYTES 15.1 % (15-50); MCH 34.2 pg (26.0-34.0); MEAN PLATELET VOLUME 8.5 fL (7.4-10.4); MONOCYTES 12.7 % (2-11); NEUTROPHILS 68.7 % (40-80); PLATELET COUNT 399 10x3/uL (130-400); RBC 2.43 10x6/uL (4.20-6.10); RDW 11.9 % (11.5-14.5); WBC 8.1 10x3/uL (4.8-10.8)
[2016-10-23 05:24] LABS: MCV 100.4 fL (80.0-100.0)
[2016-10-23 05:36] LABS: CALC OSMOLALITY 272 mosm/kg (275-300); CARBON DIOXIDE 26.2 mmol/L (21.0-32.0); CHLORIDE - SERUM 104 mmol/L (98-107); CREATININE - SERUM 0.7 mg/dL (0.6-1.3); GLUCOSE 98 mg/dL (74-106); POTASSIUM - SERUM 4.2 mmol/L (3.5-5.1); SODIUM 137 mmol/L (136-145); UREA NITROGEN 10 mg/dL (7-18); eGFR NON AFRICAN AMERICAN > 90 mL/min (90-120)
--- NOTE | 2016-10-23 05:49 | NUR ---
NO CHANGES FROM PREVIOUS ASSESSMENT, CALL LIGHT IN REACH. SOME DISCOMFORT AT THIS TIME. WILL CONTINUE TO MONITOR.
[2016-10-23 06:42] VITALS: BP 93/46
[2016-10-23 08:22] LABS: HEPATITIS C ANTIBODY <0.1 (0.0-0.9)
[2016-10-23 08:44] VITALS: BP 95/50
--- NOTE | 2016-10-23 09:03 | NUR ---
TELEMETRY SR. IV PATENT. CALL LIGHT IN REACH. WILL CONT. PLAN OF CARE.
--- NOTE | 2016-10-23 11:48 | NUR ---
Patient Name: ABDIEL SOSA Encounter No: [id number] : 1980 Primary Insurance: [employer] PRVT OPTIONS [employer] Anticipated DC Date: 10-21-2016 Planned Disposition: Home with Home Health External Planned Provider: [facility], [facility] DCP follow-up note: CM SPOKE TO DR. MORATAYA ON 10-22-16 WHO INFORMED CM THAT PT WILL NEED HOME INFUSION FOR DISCHARGE POSSIBLY EARLY NEXT WEEK. CM SPOKE TO PT IN ROOM, DISCUSSED HOME INFUSION, HOME HEALTH AND INFUSION THERAPY PROVIDERS. PT IS WILLING FOR HOME IV THERAPY AND REPORTS HE OR IS FRIEND THAT LIVES WITH HIM ARE TEACHABLE. PT HAS NOT CHOICE ON PROVIDERS, CHOICE LETTER SIGNED. CM CALLED [facility], , PROVIDED REFERRAL TO [facility], FAXED REFERRAL TO [facility] AT [phone]. CM CALLED [facility], , SPOKE TO BRANDYN AND PROVIDED REFERRAL INFORMATION, FAXED REFERRAL TO [facility] AT [phone]. BRANDYN WILL START WORKING ON DETEMINING IF PT HAS COPAY AND HOW MUCH IT WILL BE. WHEN SPECIFIC HOME HEALTH / HOME INFUSION ORDERS ARE RECEIVED, NOTIFY [facility]OTH [facility] ([phone]) AND [facility] ([phone]) AND FAX INFORMATION TO [facility]OTH [facility] ([phone]) AND [facility] ([phone]). CM WILL COMPLETE HOME HEALTH AND HOME INFUSION ARRANGEMENTS WHEN SPECIFIC ORDERS ARE RECEIVED. Shree Rangel, CASE MANAGEMENT
[2016-10-23 12:17] LABS: BARTONELLA - HENSELAE IGG Negative titer (Neg:<1:320); BARTONELLA - HENSELAE IGM Negative titer (Neg:<1:100); BARTONELLA - QUINTANA IGG Negative titer (Neg:<1:320); BARTONELLA - QUINTANA IGM Negative titer (Neg:<1:100)
[2016-10-23 12:26] VITALS: BP 129/65
--- NOTE | 2016-10-23 12:31 | NUR ---
LEFT UPPER ARM MIDLINE STARTED BY MIKE FULTONREDEVELOPMENT SPECIALIST NURSE.
--- NOTE | 2016-10-23 13:29 | NUR ---
Nutrition Follow Up: Chart reviewed. Pt is eating 63% meal avg on a regular diet. Wt stable. I>O. +BM 10/16/16 - no BM x 7 days. Labs reviewed. Meds noted including NS @ 75 ml/hr. Pt with fair po intake. Rec continue current diet. Will continue to provide selective menus and honor food preferences. RD following.
--- NOTE | 2016-10-23 14:03 | NUR ---
LEAVING FOR CT BY W/C.
[2016-10-23 14:22] LABS: Q FEVER PHASE I AB Negative (Neg:<1:16); Q FEVER PHASE II AB Negative (Neg:<1:16)
[2016-10-23 16:15] VITALS: BP 110/44
--- NOTE | 2016-10-23 19:51 | NUR ---
PT RESTING IN BED WITH NO DISTRESS. VSS STABLE. SALINE LOCK TO RIGHT AM. CPOC. SEE SHIFT ASSESSMENT.
--- NOTE | 2016-10-23 20:55 | NUR ---
HS MEDS GIVEN. PT RESTING IN BED AND WATCHING TV. IVF NS @ 75ML/HR INFUSING.
[2016-10-23 21:42] VITALS: BP 111/58
--- NOTE | 2016-10-23 23:29 | NUR ---
TEMP 101.7, PT SAYING HE FEELS BAD BUT DOESN'T KNOW WHY. EXPLAINED TO PATIENT THAT HIS TEMP IS UP AND ONCE IT COMES BACK DOWN HE WILL FELL BETTER. ENCOURAGED PT TO LET NURSE ADJUST ROOM TEMP, HE HAS IT VERY HOT, BUT HE SAID IT WOULD MAKE HIM TOO COLD.
[2016-10-24 00:56] VITALS: BP 95/36
[2016-10-24 04:00] VITALS: BP 102/36
[2016-10-24 05:39] LABS: BASOPHILS 0.2 % (0-2); EOSINOPHILS 1.6 % (0-7); HEMATOCRIT 26.8 % (42.0-54.0); HEMOGLOBIN 8.8 g/dL (13.5-17.5); IMMATURE GRANULOCYTES 0.3 % (0-5); LYMPHOCYTES 11.9 % (15-50); MCHC 32.8 g/dL (31.0-37.0); MCV 100.4 fL (80.0-100.0); MEAN PLATELET VOLUME 8.3 fL (7.4-10.4); MONOCYTES 9.9 % (2-11); NEUTROPHILS 76.1 % (40-80); RBC 2.67 10x6/uL (4.20-6.10); RDW 11.9 % (11.5-14.5)
[2016-10-24 05:40] LABS: PLATELET COUNT 500 10x3/uL (130-400)
[2016-10-24 05:54] LABS: CALC OSMOLALITY 275 mosm/kg (275-300); CALCIUM 8.3 mg/dL (8.5-10.1); CARBON DIOXIDE 27.3 mmol/L (21.0-32.0); CHLORIDE - SERUM 104 mmol/L (98-107); CREATININE - SERUM 0.8 mg/dL (0.6-1.3); GLUCOSE 109 mg/dL (74-106); SODIUM 138 mmol/L (136-145); UREA NITROGEN 10 mg/dL (7-18); eGFR NON AFRICAN AMERICAN > 90 mL/min (90-120)
--- NOTE | 2016-10-24 07:30 | NUR ---
RESTING QUIETLY IN BED DENIES ANY NEEDS OR DISCOMFORT AT THIS TIME RESP UNLABORED NAD NOTED
[2016-10-24 09:30] VITALS: BP 108/59
[2016-10-24 11:38] LABS: ALBUMIN 2.1 g/dL (3.4-5.0); BILIRUBIN - DIRECT 0.09 mg/dL (0.00-0.30); BILIRUBIN - INDIRECT 0.2 mg/dL (0.00-1.00); BILIRUBIN - TOTAL 0.29 mg/dL (0.2-1.3); PROTEIN - SERUM 6.6 g/dL (6.4-8.2)
[2016-10-24 16:11] VITALS: BP 98/50
[2016-10-24 17:43] VITALS: BP 108/67
[2016-10-24 20:00] VITALS: BP 105/49
[2016-10-25] VITALS: BP 92/46
[2016-10-25 04:00] VITALS: BP 97/44
[2016-10-25 05:25] LABS: BASOPHILS 0.2 % (0-2); EOSINOPHILS 1.9 % (0-7); HEMATOCRIT 24.2 % (42.0-54.0); HEMOGLOBIN 8.1 g/dL (13.5-17.5); IMMATURE GRANULOCYTES 0.2 % (0-5); LYMPHOCYTES 10.8 % (15-50); MCH 33.3 pg (26.0-34.0); MCHC 33.5 g/dL (31.0-37.0); MCV 99.6 fL (80.0-100.0); MEAN PLATELET VOLUME 8.4 fL (7.4-10.4); MONOCYTES 9.9 % (2-11); PLATELET COUNT 479 10x3/uL (130-400); RBC 2.43 10x6/uL (4.20-6.10); WBC 11.4 10x3/uL (4.8-10.8)
[2016-10-25 05:46] LABS: ALBUMIN 1.8 g/dL (3.4-5.0); ALKALINE PHOSPHATASE 61 U/L (46-116); BILIRUBIN - TOTAL 0.26 mg/dL (0.2-1.3); CALCIUM 7.9 mg/dL (8.5-10.1); CARBON DIOXIDE 24.7 mmol/L (21.0-32.0); CHLORIDE - SERUM 105 mmol/L (98-107); CREATININE - SERUM 0.7 mg/dL (0.6-1.3); GLUCOSE 99 mg/dL (74-106); POTASSIUM - SERUM 3.8 mmol/L (3.5-5.1); SODIUM 137 mmol/L (136-145); eGFR NON AFRICAN AMERICAN > 90 mL/min (90-120)
[2016-10-25 05:48] LABS: ALT (SGPT) 48 U/L (10-68); CALC OSMOLALITY 271 mosm/kg (275-300); UREA NITROGEN 7 mg/dL (7-18)
--- NOTE | 2016-10-25 07:30 | NUR ---
RECEIVED PT IN BED EYES CLOSED RESP UNLABORED NAD NOTED
[2016-10-25 08:15] VITALS: BP 112/49
--- NOTE | 2016-10-25 10:14 | OP ---
PATIENT NAME: ABDIEL SOSA MEDICAL RECORD: [id number] :[birth year] LOCATION:D.M2 D.2116 ADMISSION DATE:10/15/16 SURGEON: GREG NANCE MD DATE OF OPERATION: 10/20/2016 PROCEDURE: Left heart catheterization, selective coronary angiography, right femoral artery approach. CATHETERS: A 5-Yoruba sheath, 5/4 left and right Santa. The procedure was well tolerated. The patient returned to the damon, sheath removed. ExoSeal device placed on, left ventriculography in 30-degree MCRAE view not performed. CORONARY ANATOMY: Left main: Left main is free of disease. LAD: Free of disease in the diagonal system. CIRCUMFLEX: Free of disease in the marginal system. RIGHT CORONARY ARTERY: Dominant artery, gives rise to PDA, free of disease. IMPRESSION: Normal left ventricular systolic function, normal coronary anatomy. TRANSINT:[id number] Voice Confirmation ID: [id number] DOCUMENT ID: [id number] GREG NANCE MD at 1014 CC: [id number] DICTATION DATE: 10/20/16 1418 COMPUTER TYPESETTER: 10/20/16 1508 ADM IN [facility] [address] [id number]
--- NOTE | 2016-10-25 10:14 | TEE ---
PATIENT:ABDIEL SOSA MEDICAL RECORD: [id number] LOCATION:D.M2 D.211 AGE OF PATIENT: 36 ADMISSION DATE: 10/15/16 SEX: M REFERRING PHYSICIAN: INTERPRETING PHYSICIAN: GREG NANCE MD TRANSESOPHAGEAL ECHOCARDIOGRAM MOUSTAPHA CHARGE Y INDICATIONS: ASSESS AORTIC VALVE FOR STENOSIS/VEGATATION PREMEDICATIONS: PATIENT'S RESPONSE PROCEDURE DOPPLER MEASUREMENTS: LVIT LA PA 119 RA LVOT 159 RVOT 99 Asc. Ao 337 AV Gradient Peak 45.39 AV Mean 28.45 AV Area 1.4 MV Gradient Peak 12.65 MV Mean 4.90 MV Area INTERPRETATION: Doppler: 2-D: AORTIC VEGATAION NOTED COLOR FLOW DOPPLER NORMAL SALINE STUDY: MISCELLANOUS: DIAGNOSIS: PLAN: [employer] Banker:10 Dr. Hazel Public Health Outreach Worker: Meghana DIOR COMMENTS: DATE OF SERVICE: 10/20/2016 Transesophageal Note PROCEDURE: After general sedation via TIVA via anesthesia, transesophageal Omniplane probe was placed into the distal esophagus to proximal stomach without difficulty. FINDINGS ARE FOLLOWS: No LVH. LV internal dimensions are normal. Wall TRANSESOPHAGEAL ECHOCARDIOGRAM REPORT [id number] ABDIEL SOSA F motion is normal. EF is greater than 55%. Aortic valve is sclerotic, difficult to tell if this is bicuspid valve. There is highly suspicious area of approximately 0.5 cm of mobile vegetation moving in and out of the outflow tract, moderate AI is present as well. Left atrium is normal dimensions. Mitral valve shows no prolapse. No significant MR. Right-sided chambers are grossly normal. No significant TR. 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 TRANSINT:[id number] Voice Confirmation ID: [id number] DOCUMENT ID: [id number] at 1014 CC: [id number] DICTATION DATE: 10/20/16 1359 SOLUTIONS MANAGER: 10/20/16 1950 ADM IN [facility] [address] [place] [address]
[2016-10-25 12:08] VITALS: BP 104/52
[2016-10-25 15:49] VITALS: BP 120/52
--- NOTE | 2016-10-25 19:00 | NUR ---
INITIAL ROUNDS MADE.PT SITTING UP IN BED WATCHING TV. DENIES NEEDS OR C/O AT THIS TIME. CALL LIGHT IN REACH. WILL CONT TO MONITOR.
[2016-10-25 20:00] VITALS: BP 94/48
[2016-10-26] VITALS: BP 99/44
--- NOTE | 2016-10-26 00:29 | NUR ---
HORSESHOER AT BEDSIDE FOR VS. NEEDS ADDRESSED, CALL LIGHT IN REACH. WILL CONT TO MONITOR.
[2016-10-26 04:00] VITALS: BP 96/44
[2016-10-26 05:34] LABS: BASOPHILS 0.2 % (0-2); EOSINOPHILS 5.7 % (0-7); HEMATOCRIT 26.4 % (42.0-54.0); HEMOGLOBIN 8.7 g/dL (13.5-17.5); IMMATURE GRANULOCYTES 0.2 % (0-5); LYMPHOCYTES 12.9 % (15-50); MCH 32.7 pg (26.0-34.0); MCV 99.2 fL (80.0-100.0); MEAN PLATELET VOLUME 8.5 fL (7.4-10.4); MONOCYTES 10.7 % (2-11); NEUTROPHILS 70.3 % (40-80); PLATELET COUNT 550 10x3/uL (130-400); RBC 2.66 10x6/uL (4.20-6.10); RDW 12.1 % (11.5-14.5)
[2016-10-26 05:42] LABS: WBC 8.1 10x3/uL (4.8-10.8)
[2016-10-26 06:02] LABS: ALBUMIN 1.9 g/dL (3.4-5.0); ALKALINE PHOSPHATASE 62 U/L (46-116); BILIRUBIN - TOTAL 0.27 mg/dL (0.2-1.3); CALC OSMOLALITY 275 mosm/kg (275-300); CALCIUM 7.7 mg/dL (8.5-10.1); CARBON DIOXIDE 25.9 mmol/L (21.0-32.0); CHLORIDE - SERUM 106 mmol/L (98-107); CREATININE - SERUM 0.7 mg/dL (0.6-1.3); GLUCOSE 101 mg/dL (74-106); POTASSIUM - SERUM 3.5 mmol/L (3.5-5.1); PROTEIN - SERUM 6.3 g/dL (6.4-8.2); SODIUM 139 mmol/L (136-145); UREA NITROGEN 7 mg/dL (7-18); eGFR NON AFRICAN AMERICAN > 90 mL/min (90-120)
[2016-10-26 06:10] LABS: ALT (SGPT) 66 U/L (10-68)
[2016-10-26 08:40] VITALS: BP 112/57
[2016-10-26 12:31] VITALS: BP 96/48
--- NOTE | 2016-10-26 14:03 | NUR ---
TELEMETRY SR. IV PATENT. FEVER AND CHILLS CONT. WILL MONITOR.
--- NOTE | 2016-10-26 15:25 | NUR ---
TEMP 104.6. [place] FOR DR ROBLEDO AND DR. BUSTILLO NOTIFOED. NEW ORDERS GIVEN.
[2016-10-26 16:58] VITALS: BP 106/58
[2016-10-26 19:00] VITALS: BP 103/43
--- NOTE | 2016-10-26 19:00 | NUR ---
INITIAL ROUNDS MADE. PT SITTING UP ON SIDE OF BED, BIOMEDICAL ENGINEERING AIDE IN ROOM PREPPING PT FOR SHOWER. NO NEEDS OR C/O VOICED AT THIS TIME. WILL CONT TO MONITOR.
[2016-10-27] VITALS: BP 93/51
--- NOTE | 2016-10-27 00:05 | NUR ---
BOX SPRING UPHOLSTERER AT BEDSIDE FOR VS. NEEDS ADDRESSED AT THIS TIME. CALL LIGHT IN REACH. WILL CONT TO MONITOR.
[2016-10-27 05:38] VITALS: BP 90/42
[2016-10-27 05:46] LABS: BASOPHILS 0.3 % (0-2); EOSINOPHILS 2.2 % (0-7); HEMATOCRIT 26.1 % (42.0-54.0); HEMOGLOBIN 8.5 g/dL (13.5-17.5); IMMATURE GRANULOCYTES 0.3 % (0-5); LYMPHOCYTES 12.9 % (15-50); MCH 32.6 pg (26.0-34.0); MCHC 32.6 g/dL (31.0-37.0); MEAN PLATELET VOLUME 8.5 fL (7.4-10.4); MONOCYTES 13.4 % (2-11); NEUTROPHILS 70.9 % (40-80); PLATELET COUNT 590 10x3/uL (130-400); RBC 2.61 10x6/uL (4.20-6.10); RDW 12.3 % (11.5-14.5); WBC 7.2 10x3/uL (4.8-10.8)
[2016-10-27 06:26] LABS: ALBUMIN 1.9 g/dL (3.4-5.0); ALKALINE PHOSPHATASE 54 U/L (46-116); BILIRUBIN - TOTAL 0.25 mg/dL (0.2-1.3); CALC OSMOLALITY 273 mosm/kg (275-300); CALCIUM 7.7 mg/dL (8.5-10.1); CARBON DIOXIDE 25.5 mmol/L (21.0-32.0); CHLORIDE - SERUM 105 mmol/L (98-107); CREATININE - SERUM 0.8 mg/dL (0.6-1.3); GLUCOSE 102 mg/dL (74-106); POTASSIUM - SERUM 3.5 mmol/L (3.5-5.1); PROTEIN - SERUM 6.1 g/dL (6.4-8.2); SODIUM 138 mmol/L (136-145); UREA NITROGEN 8 mg/dL (7-18); eGFR NON AFRICAN AMERICAN > 90 mL/min (90-120)
[2016-10-27 06:30] LABS: ALT (SGPT) 49 U/L (10-68)
--- NOTE | 2016-10-27 10:18 | NUR ---
LEAVING FOR X-RAY BY W/C.
--- NOTE | 2016-10-27 11:30 | NUR ---
Patient Name: ABDIEL SOSA Encounter No: [id number] : 1980 Primary Insurance: [employer] PRVT OPTIONS [place] Anticipated DC Date: 10-21-2016 Planned Disposition: Home with Home Health External Planned Provider: [facility] . [facility] DCP follow-up note: CM RECEIVED PT'S INSURANCE CARD, VERFIED HIS LAST NAME SHEILA MATAMOROS AND DATE OF AT 1980. CM CALLED [facility], PROVIDED THE ABOVE INFORMATION, [facility] WILL COMPLETE HOME IV INFUSION AND SUBMIT FOR INSURANCE AUTHORIZATION WHEN NOTIFIED OF PROJECTED DISCHARGE HOME. CM RECEIVED CALL FROM [facility]; CM ASKED FOR ESTIMATED COSTS OF IV INFUSION OUTPATIENT AT [facility]. CM FAXED REFERRAL TO [facility] AT [facility], . CM WAITING COSTS ESTIMATE FROM [facility], FOR OUTPATIENT IV THERAPY TO COMPARE TO $60 PER DAY FOR HOME IV INFUSION SERVICES. Shree Rangel, CASE MANGEMENT
--- NOTE | 2016-10-27 11:56 | NUR ---
JOSEFINA NOTIFIED ME OF ELEVATED TEMP OF 102.6. I PROVIDED TYLENOL FOR FEVER HIS NURSE WAS UNAVAILABLE. WILL NOTIFY HER.
[2016-10-27 12:00] VITALS: BP 111/63
--- NOTE | 2016-10-27 12:03 | NUR ---
TELEMETRY SR. IV PATENT. TYLENOL GIVEN FOR TEMP SPIKE. FAMILY AT BS. WILL CONT. PLANB OF CARE.
[2016-10-27 14:23] LABS: BRUCELLA IGG Negative (Negative); BRUCELLA IGM Negative (Negative)
[2016-10-27 16:28] VITALS: BP 91/42
--- NOTE | 2016-10-27 19:00 | NUR ---
INITIAL ROUNDS MADE. PT SITTING UP IN BED WATCHING TV. NO NEEDS OR C/O VOICED AT THIS TIME. CALL LIGHT IN REACH. WILL CONT TO MONITOR.
[2016-10-27 20:00] VITALS: BP 94/49
[2016-10-28] VITALS: BP 100/57
[2016-10-28 04:00] VITALS: BP 99/54
--- NOTE | 2016-10-28 04:39 | NUR ---
TAPING SUPERVISOR AT BEDSIDE FOR VS. NEEDS ADDRESSED AT THIS TIME. CALL LIGHT IN REACH. WILL CONT TO MONITOR.
[2016-10-28 07:14] LABS: ALBUMIN 1.9 g/dL (3.4-5.0); ALKALINE PHOSPHATASE 47 U/L (46-116); ALT (SGPT) 41 U/L (10-68); BILIRUBIN - TOTAL 0.21 mg/dL (0.2-1.3); CALC OSMOLALITY 274 mosm/kg (275-300); CALCIUM 7.7 mg/dL (8.5-10.1); CARBON DIOXIDE 24.5 mmol/L (21.0-32.0); CHLORIDE - SERUM 104 mmol/L (98-107); CREATININE - SERUM 0.7 mg/dL (0.6-1.3); GLUCOSE 118 mg/dL (74-106); POTASSIUM - SERUM 3.6 mmol/L (3.5-5.1); PROTEIN - SERUM 5.5 g/dL (6.4-8.2); SODIUM 138 mmol/L (136-145); UREA NITROGEN 6 mg/dL (7-18); eGFR NON AFRICAN AMERICAN > 90 mL/min (90-120)
[2016-10-28 08:33] VITALS: BP 99/52
--- NOTE | 2016-10-28 10:32 | NUR ---
Patient Name: ABDIEL SOSA Encounter No: [id number] : 1980 Primary Insurance: QUALCHOICE PRVT OPTIONS [employer] Anticipated DC Date: 10-21-2016 Planned Disposition: Home with Home Health External Planned Provider: [facility] DCP follow-up note: CM RECEIVED CALL FROM [facility], SHE HAS CHECKED WITH PT'S INSURANCE, PT'S COSTS FOR OUTPATIENT IV THERAPY WOULD BE APPROXIMATELY $80 PER DAY. PT'S COSTS FOR HOME IV INFUSION SERVICES IS $60 PER DAY. PT NOTIFIED AND WILL SPEAK TO DOCTOR REGARDING HIS CHOICES. IF OUTPATIENT THERAPY IS DECIDED, CM WILL NEED ORDERS AND TO NOTIFY [facility] IN [place], . IF HOME IV INFUSION IS DECIDED, CM WILL NEED HOME HEALTH / HOME INFUSION ORDERS; CM TO NOTIFY BOTH [facility] ([phone]) AND [facility] ([phone]) AND FAX INFORMATION TO [facility]OTH [facility] ([phone]) AND [facility] ([phone]). Shree Rangel, CASE MANAGEMENT
--- NOTE | 2016-10-28 11:08 | NUR ---
DRSG CHANGED TO MIDLINE SITE.
--- NOTE | 2016-10-28 12:00 | NUR ---
BACK FROM [place]. TELEMETRY SR. IV PATENT.
[2016-10-28 13:17] VITALS: BP 125/62
--- NOTE | 2016-10-28 14:26 | NUR ---
Nutrition Follow Up: Chart reviewed. Pt is eating 72% meal avg on a regular diet. I>O. Wt stable. +BM 10/25/16. Labs reviewed. Meds noted including NS @ 75 ml/hr. Pt with good po intake at this time. Rec continue current diet. RD following.
--- NOTE | 2016-10-28 16:34 | NUR ---
Called to look at midline. Midlie catheter leaking, dressing saturated and was recently (today) changed. 22 gauge inserted in left hand for access, midline removed with cath intact at 13 cm. Will replace midline in am. Mona Lacy RN
--- NOTE | 2016-10-28 17:03 | NUR ---
IV RESTARTED TO RIGHT HAND BY MIKE FULTON. LINE IS PATENT.
[2016-10-28 17:30] VITALS: BP 126/63
--- NOTE | 2016-10-28 19:58 | NUR ---
RESUMED CARE OF PT, LYING IN BED RESPIRATIONS EVEN AND UNLABORED ON ROOM AIR. LEFT HAND INFUSING NS @ 75. 100 SR ON TELEMETRY. NO NEEDS VOICED AT THIS TIME. WILL CONTINUE TO MONITOR. SEE NURSE ASSESSMENT. CALL LIGHT IN REACH.
[2016-10-28 20:00] VITALS: BP 110/56
[2016-10-29] VITALS: BP 101/55
[2016-10-29 04:00] VITALS: BP 104/50
[2016-10-29 06:56] LABS: BASOPHILS 0.3 % (0-2); EOSINOPHILS 6.6 % (0-7); HEMATOCRIT 25.4 % (42.0-54.0); HEMOGLOBIN 8.4 g/dL (13.5-17.5); IMMATURE GRANULOCYTES 0.3 % (0-5); LYMPHOCYTES 17.6 % (15-50); MCH 32.7 pg (26.0-34.0); MCHC 33.1 g/dL (31.0-37.0); MCV 98.8 fL (80.0-100.0); MEAN PLATELET VOLUME 8.4 fL (7.4-10.4); MONOCYTES 12.9 % (2-11); NEUTROPHILS 62.3 % (40-80); PLATELET COUNT 569 10x3/uL (130-400); RBC 2.57 10x6/uL (4.20-6.10); RDW 12.4 % (11.5-14.5)
[2016-10-29 07:14] LABS: ALBUMIN 1.9 g/dL (3.4-5.0); ALKALINE PHOSPHATASE 40 U/L (46-116); ALT (SGPT) 50 U/L (10-68); CALC OSMOLALITY 275 mosm/kg (275-300); CARBON DIOXIDE 27.3 mmol/L (21.0-32.0); CHLORIDE - SERUM 103 mmol/L (98-107); CREATININE - SERUM 0.7 mg/dL (0.6-1.3); GLUCOSE 91 mg/dL (74-106); POTASSIUM - SERUM 3.4 mmol/L (3.5-5.1); PROTEIN - SERUM 6.2 g/dL (6.4-8.2); SODIUM 139 mmol/L (136-145); UREA NITROGEN 6 mg/dL (7-18); eGFR NON AFRICAN AMERICAN > 90 mL/min (90-120)
--- NOTE | 2016-10-29 07:30 | NUR ---
RESTING QUIETLYU NAD NOTED PT DENIES ANY NEEDS OR DISCOMFORT
[2016-10-29 07:54] VITALS: BP 97/46
[2016-10-29 12:01] VITALS: BP 110/62
[2016-10-29 16:41] VITALS: BP 115/62
[2016-10-29 20:00] VITALS: BP 98/47
[2016-10-30] VITALS (12 sets, daily range): BP systolic 92–106; BP diastolic 44–64
--- NOTE | 2016-10-30 00:34 | NUR ---
ADULT SECONDARY EDUCATION INSTRUCTOR AT BEDSIDE TO OBTAIN VITALS, CALL LIGHT IN REACH. WILL CONTINUE WITH PLAN OF CARE.
[2016-10-30 05:48] LABS: BASOPHILS 0.2 % (0-2); EOSINOPHILS 0.2 % (0-7); HEMATOCRIT 27.1 % (42.0-54.0); HEMOGLOBIN 9.3 g/dL (13.5-17.5); IMMATURE GRANULOCYTES 0.2 % (0-5); LYMPHOCYTES 15.4 % (15-50); MCH 33.5 pg (26.0-34.0); MCHC 34.3 g/dL (31.0-37.0); MCV 97.5 fL (80.0-100.0); MEAN PLATELET VOLUME 8.7 fL (7.4-10.4); MONOCYTES 9.2 % (2-11); NEUTROPHILS 74.8 % (40-80); PLATELET COUNT 566 10x3/uL (130-400); RBC 2.78 10x6/uL (4.20-6.10); RDW 12.4 % (11.5-14.5)
[2016-10-30 06:01] LABS: CALC OSMOLALITY 272 mosm/kg (275-300); CALCIUM 8.4 mg/dL (8.5-10.1); CARBON DIOXIDE 26.4 mmol/L (21.0-32.0); CHLORIDE - SERUM 105 mmol/L (98-107); CREATININE - SERUM 0.7 mg/dL (0.6-1.3); GLUCOSE 113 mg/dL (74-106); SODIUM 137 mmol/L (136-145); UREA NITROGEN 7 mg/dL (7-18); eGFR NON AFRICAN AMERICAN > 90 mL/min (90-120)
[2016-10-30 06:02] LABS: POTASSIUM - SERUM 4.4 mmol/L (3.5-5.1)
--- NOTE | 2016-10-30 06:30 | NUR ---
NO CHANGES FROM PREVIOUS ASSESSMENT, CALL LIGHT IN REACH.
--- NOTE | 2016-10-30 07:30 | NUR ---
RECEIVED PT IN BED EYES CLOSED RES[P UNLABORED NAD NOTED
[2016-10-30 09:39] LABS: APTT 37.6 SECONDS (22.8-39.4); INR 1.14 (0.85-1.17); PROTIME 14.5 SECONDS (11.6-15.0)
--- NOTE | 2016-10-30 16:00 | NUR ---
RECEIVED PT BACK TO ROM FRON PROCEDURE VSS DRSG TO LT SIDE C/D/I
[2016-10-30 16:53] LABS: PROTEIN - BODY FLUID 3.3 G/DL
[2016-10-30 17:31] LABS: LYMPH - BF 63 %; MACROPHAGES BF 5 %; MESOTHELIALS BF 27 %; NEUT - BF 5 %
[2016-10-31] VITALS: BP 97/38
[2016-10-31 04:00] VITALS: BP 94/58
[2016-10-31 05:11] LABS: BASOPHILS 0.7 % (0-2); EOSINOPHILS 5.1 % (0-7); HEMATOCRIT 26.8 % (42.0-54.0); HEMOGLOBIN 8.7 g/dL (13.5-17.5); IMMATURE GRANULOCYTES 0.2 % (0-5); LYMPHOCYTES 28.1 % (15-50); MCHC 32.5 g/dL (31.0-37.0); MCV 98.5 fL (80.0-100.0); MEAN PLATELET VOLUME 8.5 fL (7.4-10.4); MONOCYTES 10.5 % (2-11); NEUTROPHILS 55.4 % (40-80); PLATELET COUNT 550 10x3/uL (130-400); RBC 2.72 10x6/uL (4.20-6.10); RDW 12.3 % (11.5-14.5); WBC 4.3 10x3/uL (4.8-10.8)
[2016-10-31 05:26] LABS: CALC OSMOLALITY 273 mosm/kg (275-300); CALCIUM 8.2 mg/dL (8.5-10.1); CARBON DIOXIDE 27.4 mmol/L (21.0-32.0); CHLORIDE - SERUM 106 mmol/L (98-107); CREATININE - SERUM 0.8 mg/dL (0.6-1.3); GLUCOSE 84 mg/dL (74-106); SODIUM 138 mmol/L (136-145); UREA NITROGEN 10 mg/dL (7-18); eGFR NON AFRICAN AMERICAN > 90 mL/min (90-120)
[2016-10-31 08:00] VITALS: BP 89/49
--- NOTE | 2016-10-31 09:14 | NUR ---
TELEMETRY SR. IV PATENT. CALL LIGHT IN REACH. WILL CONT. PLAN OF CARE.
[2016-10-31 12:00] VITALS: BP 108/57
--- NOTE | 2016-10-31 12:00 | NUR ---
C/O STOMACH CRAMPS AND DIARRHEA. DR. MORATAYA NOTIFIED. NEW ORDERS GIVEN.
[2016-10-31 16:00] VITALS: BP 105/48
[2016-10-31 17:08] LABS: ACID FAST SMEAR Negative (()); AFB SPECIMEN PROCESSING Not Indicated (())
--- NOTE | 2016-10-31 18:23 | NUR ---
STOOL SPECIMEN COLLECTED AND TAKEN TO LAB FOR CDT AND OCCULT BLOOD. WILL MONITOR.
[2016-10-31 19:00] VITALS: BP 101/51
[2016-11-01] VITALS: BP 109/50
[2016-11-01 04:23] VITALS: BP 117/54
[2016-11-01 06:35] LABS: BASOPHILS 0.6 % (0-2); EOSINOPHILS 6.1 % (0-7); HEMATOCRIT 28.8 % (42.0-54.0); HEMOGLOBIN 9.3 g/dL (13.5-17.5); IMMATURE GRANULOCYTES 0.4 % (0-5); LYMPHOCYTES 24.3 % (15-50); MCH 31.8 pg (26.0-34.0); MCHC 32.3 g/dL (31.0-37.0); MCV 98.6 fL (80.0-100.0); MEAN PLATELET VOLUME 8.6 fL (7.4-10.4); MONOCYTES 9.6 % (2-11); PLATELET COUNT 573 10x3/uL (130-400); RBC 2.92 10x6/uL (4.20-6.10); RDW 12.3 % (11.5-14.5)
[2016-11-01 06:36] LABS: WBC 6.7 10x3/uL (4.8-10.8)
[2016-11-01 06:46] LABS: CALC OSMOLALITY 273 mosm/kg (275-300); CALCIUM 8.1 mg/dL (8.5-10.1); CARBON DIOXIDE 26.2 mmol/L (21.0-32.0); CHLORIDE - SERUM 104 mmol/L (98-107); CREATININE - SERUM 0.8 mg/dL (0.6-1.3); GLUCOSE 85 mg/dL (74-106); POTASSIUM - SERUM 3.9 mmol/L (3.5-5.1); SODIUM 138 mmol/L (136-145); UREA NITROGEN 10 mg/dL (7-18); eGFR NON AFRICAN AMERICAN > 90 mL/min (90-120)
[2016-11-01 08:00] VITALS: BP 102/47
[2016-11-01 12:00] VITALS: BP 112/56
--- NOTE | 2016-11-01 19:00 | NUR ---
INITIAL ROUNDS MADE. PT SITTING UP IN BED WATCHING TV. NO NEEDS OR C/O VOICED AT THIS TIME. CALL LIGHT IN REACH. WILL CONT TO MONITOR.
[2016-11-01 19:46] VITALS: BP 106/56
[2016-11-01 23:27] VITALS: BP 109/50
--- NOTE | 2016-11-02 01:18 | NUR ---
RESTING WELL WITH EYES CLOSED, CALL LIGHT IN REACH. WILL CONT TO MONITOR.
[2016-11-02 03:43] VITALS: BP 101/56
[2016-11-02 05:31] LABS: BASOPHILS 0.4 % (0-2); EOSINOPHILS 3.8 % (0-7); HEMATOCRIT 31.5 % (42.0-54.0); HEMOGLOBIN 10.4 g/dL (13.5-17.5); IMMATURE GRANULOCYTES 0.7 % (0-5); LYMPHOCYTES 18.3 % (15-50); MCH 32.2 pg (26.0-34.0); MCV 97.5 fL (80.0-100.0); MEAN PLATELET VOLUME 8.7 fL (7.4-10.4); MONOCYTES 9.7 % (2-11); NEUTROPHILS 67.1 % (40-80); PLATELET COUNT 572 10x3/uL (130-400); RBC 3.23 10x6/uL (4.20-6.10); RDW 12.3 % (11.5-14.5); WBC 7.7 10x3/uL (4.8-10.8)
[2016-11-02 05:55] LABS: CALC OSMOLALITY 265 mosm/kg (275-300); CALCIUM 8.4 mg/dL (8.5-10.1); CARBON DIOXIDE 25.9 mmol/L (21.0-32.0); CHLORIDE - SERUM 103 mmol/L (98-107); CREATININE - SERUM 0.7 mg/dL (0.6-1.3); GLUCOSE 95 mg/dL (74-106); POTASSIUM - SERUM 3.6 mmol/L (3.5-5.1); SODIUM 134 mmol/L (136-145); UREA NITROGEN 8 mg/dL (7-18); eGFR NON AFRICAN AMERICAN > 90 mL/min (90-120)
--- NOTE | 2016-11-02 07:30 | NUR ---
RECEIVED PT IN BED AAOX4 RESP UNLABORED DENIES ANY NEEDS OR DISCOMFORT AT THIS TIME
[2016-11-02 07:37] VITALS: BP 107/48
--- NOTE | 2016-11-02 09:46 | NUR ---
DR WRIGHT REQUEST ROCE[facility] IVPB BE DCD PT C/O OF PAIN FROM [facility] MEDICATION STOPPED WILL CONTINUE TO MONITOR
[2016-11-02 11:22] VITALS: BP 119/57
--- NOTE | 2016-11-02 11:38 | NUR ---
Patient Name: ABDIEL SOSA Encounter No: [id number] : 1980 Primary Insurance: QU[employer]ICE PRVT OPTIONS [employer] Anticipated DC Date: 10-21-2016 Planned Disposition: Home with Home Health External Planned Provider: [facility] / [facility] DCP follow-up note: CM RECEIVED DISCHARGE PLANNING ORDER FROM 11-01-16. CM SPOKE TO DR. MORATAYA WHO INFORMED CM THAT PT CONTINUES TO REQUIRE FURTHER TREATMENT AND TESTING TO DETERMINE WHAT ANTIBIOTICS ARE NEEDED. IF OUTPATIENT THERAPY IS DECIDED, CM WILL NEED ORDERS AND [facility], . IF HOME IV INFUSION IS DECIDED, CM WILL NEED HOME HEALTH / HOME INFUSION ORDERS; CM TO NOTIFY BOTH [facility] ([phone]) AND [facility] ([phone]) AND FAX INFORMATION TO [facility]OTH [facility] ([phone]) AND [facility] ([phone]). Shree Rangel, CASE MANAGEMENT
--- NOTE | 2016-11-02 13:12 | NUR ---
Patient Name: ABDIEL SOSA Encounter No: [id number] : 1980 Primary Insurance: [employer] Anticipated DC Date: 11-03-2016 Planned Disposition: Home with Home Health External Planned Provider: [facility] DCP follow-up note: CM REVIEWED 'S NOTES. CM CALLED [facility], , PROVIDED REFERRAL TO [facility], FAXED REFERRAL TO [facility] AT [phone]. [facility] ADVISED THEY CAN ADMIT PT TOMORROW IF NECESSARY. CM CALLED [facility], , SPOKE TO BRANDYN AND PROVIDED REFERRAL INFORMATION, FAXED REFERRAL TO [facility] AT [phone]. BRANDYN WILL START WORKING ON DETEMINING HOW MUCH PT'S COPAY WILL BE AND WILL NOTIFY CM SOON POSSIBLE. Shree Rangel, CASE MANAGEMENT
[2016-11-02 13:14] LABS: FUNGUS STAIN Final report (())
[2016-11-02 15:34] VITALS: BP 114/61
[2016-11-02 20:00] VITALS: BP 117/54
--- NOTE | 2016-11-02 21:39 | NUR ---
INITIAL ROUNDS MADE. PT SITTING UP IN BED WATCHING TV. DENIES NEEDS OR C/O AT THIS TIME. CALL LIGHT IN REACH. WILL CONT TO MONITOR.
--- NOTE | 2016-11-03 00:33 | NUR ---
TRAVEL TRAILER COMPONENTS ASSEMBLER AT BEDSIDE FOR VS. NEEDS ADDRESSED AT THIS TIME. CALL LIGHT IN REACH. WILL CONT TO MONITOR.
[2016-11-03 00:59] VITALS: BP 99/47
[2016-11-03 04:16] VITALS: BP 99/45
[2016-11-03 05:19] LABS: BASOPHILS 0.2 % (0-2); EOSINOPHILS 1.5 % (0-7); HEMATOCRIT 32.3 % (42.0-54.0); HEMOGLOBIN 10.5 g/dL (13.5-17.5); IMMATURE GRANULOCYTES 0.5 % (0-5); LYMPHOCYTES 23.4 % (15-50); MCH 31.6 pg (26.0-34.0); MCHC 32.5 g/dL (31.0-37.0); MCV 97.3 fL (80.0-100.0); MEAN PLATELET VOLUME 8.8 fL (7.4-10.4); NEUTROPHILS 64.4 % (40-80); PLATELET COUNT 543 10x3/uL (130-400); RBC 3.32 10x6/uL (4.20-6.10); RDW 12.6 % (11.5-14.5); WBC 8.8 10x3/uL (4.8-10.8)
[2016-11-03 05:52] LABS: CALC OSMOLALITY 272 mosm/kg (275-300); CALCIUM 8.7 mg/dL (8.5-10.1); CARBON DIOXIDE 28.3 mmol/L (21.0-32.0); CHLORIDE - SERUM 103 mmol/L (98-107); CREATININE - SERUM 0.8 mg/dL (0.6-1.3); GLUCOSE 90 mg/dL (74-106); POTASSIUM - SERUM 3.9 mmol/L (3.5-5.1); SODIUM 137 mmol/L (136-145); eGFR NON AFRICAN AMERICAN > 90 mL/min (90-120)
[2016-11-03 05:54] LABS: UREA NITROGEN 11 mg/dL (7-18)
--- NOTE | 2016-11-03 07:30 | NUR ---
RESTING QUIELTY RESP UNLABORED DENIES ANY NEEDS OR DISCOMFORT NAD NOTED WILL CONTINUE TO MONITOR
[2016-11-03 08:02] VITALS: BP 95/43
--- NOTE | 2016-11-03 09:06 | NUR ---
Patient Name: ABDIEL SOSA Encounter No: [id number] : 1980 Primary Insurance: [employer] Anticipated DC Date: 11-03-2016 Planned Disposition: Home with Home Health External Planned Provider: [facility] / [facility] DCP follow-up note: LATE YESTERDAY AFTERNOON, ALISON SPOKE TO CRISTA OF [facility], WHO PROVIDED COSTS OF AMPICILLIN AND ANCEF FOR PT'S HOME IV INFUSION: AMPICILLIN 2GM Q4 = $22.64 PER DAY MEDS, $55 PER DAY SUPPLIES ANCEF 2GM Q8 = $10.92 PER DAY MEDS, $55 PER DAY SUPPLIES CM DISCUSSED WITH PT WHO REPORTS BOTH AFFORDABLE FOR HIM, PT IN AGREEMENT WITH DISCHARGE PLAN OF HOME IV INFUSION. CM NOTIFIED DR. MORATAYA. CM RECEIVED ORDERS 11-03-16, FAXED TO [facility], AND [facility] [phone]. ALISON SPOKE TO BAKARI AT [facility] WHO WILL MAKE DELIVERY ARRANGEMENTS WITH PT. FOR DISCHARGE HOME, ALISON TO VERIFY DELIVERY ARRANGEMENT WITH [facility], ; NOTIFY [facility] AT [phone], FAX DISCHARGE INFORMATION TO [facility] AT [phone]. Shree Rangel, CASE MANAGEMENT
[2016-11-03 11:43] VITALS: BP 94/45
[2016-11-03] MEDS ORDERED: SINGULAIR10 MG PO (13:06)
[2016-11-03] MEDS ORDERED: LASIX20 MG PO (13:06)
[2016-11-03] MEDS ORDERED: Ancef 2 GM/Dextrose IV (13:06)
[2016-11-03] MEDS ORDERED: PROTONIX40 MG PO (13:06)
[2016-11-03] MEDS ORDERED: FLORAJEN3 CAPS460 MG PO (13:06)
[2016-11-03 16:35] VITALS: BP 91/38
--- NOTE | 2016-11-04 17:02 | DS ---
PATIENT:ABDIEL SOSA :[birth year] MEDICAL RECORD: [id number] DISCHARGE SUMMARY ADMISSION DATE: 10/15/16 DISCHARGE DATE: 11/03/16 DATE OF ADMISSION: 10/15/2016 DATE OF DISCHARGE: 11/03/2016 ADMITTING DIAGNOSES: Sepsis, fever, tachycardia, elevated troponin, cardiac murmur and asthma. HISTORY OF PRESENT ILLNESS: This is a 36-year-old male, whose PCP is in [place] with a past medical history of asthma, who presented with fever, sore throat and body aches. He was admitted with diagnoses as outlined above. Details are well-outlined in the history of the present illness, H&P. All events, lab procedures, diagnostic testing are well documented in the records. He had a rather lengthy stay as outlined by the dates above, multiple consultants were on this case. 1. Dr. Hazel was consulted for cardiology management. His recommendations were followed and his initial EKG showed left ventricular hypertrophy with repolarization abnormality and cardiac enzymes started to trend down indicative of a stress leak. He was felt to have an acute coronary syndrome suspected secondary to stress leak secondary to sepsis. He was taken to the orthodontic lab technician where he was found to have normal left ventricular systolic function and normal coronary anatomy. His fever worsened and he was transferred to the intensive care unit, underwent a MOUSTAPHA consistent with aortic vegetation, endocarditis. Other consultants, Dr. Leida Smiley with infectious disease, Dr. Miller with pulmonary, Dr. Olvera with cardiovascular surgery. He was stabilized in the intensive care unit and transferred to the cardiac for. He continued to run fevers and finally his fever resolved with removal of his midline catheter. It was felt most likely to be the culprit. Unfortunately the ceftriaxone that Dr. Smiley had him on for antibiotic coverage was causing an unusual reaction with severe bone pain and she switched him to a penicillin G. ____. His follow up repeat blood cultures were negative. His other problems included some pleural effusion and we consulted interventional radiology and he did have a left thoracentesis. Repeat echo showed improvement of the vegetation. He had no evidence of bowel or brain abscesses. He was found to have a liver lesion with normal AST, ALT and the liver lesion was not seen on repeat imaging. Scans of his head and abdomen and pelvis, everything was negative for any abscesses. In regards to TB screening, his QFT was negative. He is finally afebrile. He is tolerating the new antibiotic. Dr. Smiley put him on Ancef. He is stable for dismissal home today. He is afebrile, pulse 84, respirations 16, blood pressure 94/45 and O2 sat 99% room air. LABORATORY DATA: White count 8.8, hemoglobin 10.5, and platelets 543. Sodium 137, potassium 3.9, chloride 103, CO2 of 28, BUN 11, serum creatinine 0.8, calcium 8.7. He is dismissed home. His Ancef antibiotics has been set up for Dr. Smiley. He will have follow up with her. He has follow up with Dr. Olvera and Dr. Olvera felt he is not a surgical candidate at his young age. At some point in his lifetime, he may need a valve replacement and he will be followed as an outpatient. We also have him follow along with Dr. Hazel as an outpatient. He will follow up with his primary care physician in [place]. 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 Greater than 30 minutes was spent on this discharge. TRANSINT:[id number] Voice Confirmation ID: [id number] DOCUMENT ID: [id number] Dictated By: FALLON LUGO RN I have interviewed/examined the above patient and agree with these documented findings. DONNA FAULKNER DO at 1702 CC: [id number] DICTATION DATE: 11/03/16 162 [facility] ANALYST: 11/04/16 0959 DIS IN 11/03/16 [facility] [address] [place] [address]
[2016-11-09 11:13] LABS: FUNGUS MYCOLOGY CULTURE Preliminary report (())
== END 2016-11-03 19:22 | disposition home health service (06) | DRG 871 ==
LOC: D.ER 10:35 → D.MS 14:01 → D.M2 14:01 → D.ICU 14:01 → D.M2 14:48 → D.ICU 22:13 → D.MS 10-18 09:19 → D.M2 10-20 14:59
PROVIDERS: Emergency Medicine; Family Medicine Adult Medicine; Internal Medicine Interventional Cardiology; Internal Medicine Pulmonary Disease; Nurse Practitioner Family; Radiology Diagnostic Radiology; Student in an Organized Health Care Education/Training Program; ADMIT Family Medicine
PROC: 4A023N7 Measurement of Cardiac Sampling and Pressure, Left Heart, Percutaneous Approach (ICD-10-PCS; 2016-10-20)
PROC: B2111ZZ Fluoroscopy of Multiple Coronary Arteries using Low Osmolar Contrast (ICD-10-PCS; principal; 2016-10-20 13:00)
PROC: B2151ZZ Fluoroscopy of Left Heart using Low Osmolar Contrast (ICD-10-PCS; 2016-10-20 13:00)
PROC: 05HC33Z Insertion of Infusion Device into Left Basilic Vein, Percutaneous Approach (ICD-10-PCS; 2016-10-23)
PROC: B54NZZA Ultrasonography of Left Upper Extremity Veins, Guidance (ICD-10-PCS; 2016-10-23)
PROC: 05HB33Z Insertion of Infusion Device into Right Basilic Vein, Percutaneous Approach (ICD-10-PCS; 2016-10-29)
PROC: B54MZZA Ultrasonography of Right Upper Extremity Veins, Guidance (ICD-10-PCS; 2016-10-29)
PROC: 0W9B3ZZ Drainage of Left Pleural Cavity, Percutaneous Approach (ICD-10-PCS; 2016-10-30)
DX: A41.9 Sepsis, unspecified organism (principal); J18.9 Pneumonia, unspecified organism; I33.0 Acute and subacute infective endocarditis; J45.909 Unspecified asthma, uncomplicated; R79.89 Other specified abnormal findings of blood chemistry; I27.2 Other secondary pulmonary hypertension; J32.9 Chronic sinusitis, unspecified; E83.42 Hypomagnesemia; E88.09 Other disorders of plasma-protein metabolism, not elsewhere classified; K21.9 Gastro-esophageal reflux disease without esophagitis; D64.9 Anemia, unspecified; B95.4 Other streptococcus as the cause of diseases classified elsewhere; I08.2 Rheumatic disorders of both aortic and tricuspid valves; R21 Rash and other nonspecific skin eruption